=== PATIENT | female | born 1940 | race Caucasian/White ===

== ENCOUNTER 2021-11-10 18:28 | Inpatient (IN) | payer MEDICARE, BC ==
[~2021-11-10] VITALS: Ht 165.1 cm; Wt 72.2 kg
[2021-11-10] MEDS ORDERED: ONDANSETRON 4 MG/2 ML VIAL IV ONE (19:00)
[2021-11-10] MEDS ORDERED: IV NORMAL SALINE 1000 ML BAG IV ONE (19:00)
[2021-11-10] MEDS ORDERED: HYDROMORPHONE 1 MG/1 ML DISP.SYRIN IV ONE (19:00)
[2021-11-10] MEDS ORDERED: SWABABLE VALVE TRANSFER SET EA MC ONE (19:27)
[2021-11-10] MEDS ORDERED: IV NORMAL SALINE 250 ML IV ONE (19:27)
[2021-11-10] MEDS ORDERED: IOHEXOL 300MG/ML 100 ML INFUS..BTL ONE (19:27)
[2021-11-10] MEDS ORDERED: ONDANSETRON 4 MG/2 ML VIAL ONE (19:54)
[2021-11-10] MEDS ORDERED: HYDROMORPHONE 1 MG/1 ML DISP.SYRIN ONE (19:55)
[2021-11-10 20:18] LABS: HEMATOCRIT 39.7 % (31.2-41.9); MEAN CORPUSCULAR HEMOGLOBIN 27.2 uug (24.7-32.8); MEAN CORPUSCULAR VOLUME 86.9 fL (75.5-95.3); PLATELET COUNT (AUTO) 226 K/uL (179-408)
[2021-11-10 20:29] LABS: ALANINE AMINOTRANSFERASE 39 U/L (14-59); ALKALINE PHOSPHATASE 128 U/L (50-136); BILIRUBIN,DIRECT 0.1 mg/dL (0.0-0.2); BILIRUBIN,TOTAL 0.3 mg/dL (0.2-1.0); CARBON DIOXIDE 27 mmol/L (21-32); CREATININE 1.4 mg/dL (0.6-1.3); GLUCOSE 178 mg/dL (74-106); LIPASE 131 U/L (73-393); TOTAL PROTEIN, SERUM 6.8 g/dL (6.4-8.2); UREA NITROGEN, BLOOD 34 mg/dL (7-18)
[2021-11-10 20:31] LABS: CHLORIDE 101 mmol/L (98-107); POTASSIUM 4.2 mmol/L (3.5-5.1)
[2021-11-10 20:54] LABS: ASPARTATE AMINOTRANSFERASE 22 U/L (15-37)
[2021-11-10] MEDS ORDERED: IV NS 1000 ML 1,000 ML IV ONE (21:00)
[2021-11-10] MEDS ORDERED: METRONIDAZOLE 500 MG/NS 100 ML PIGGYBACK IV ONE (21:15)
[2021-11-10] MEDS ORDERED: levoFLOXacin 500 MG/D5W 100ML PIGGYBACK IV ONE (21:15)
[2021-11-10] MEDS ORDERED: METRONIDAZOLE 500 MG/NS 100ML 100 ML IV ONE (22:09)
[2021-11-10] MEDS ORDERED: ACETAMINOPHEN 650 MG SUPP.RECT RC PRN (23:00)
[2021-11-10] MEDS ORDERED: BISACODYL 10 MG SUPP.RECT RC PRN (23:00)
[2021-11-10] MEDS ORDERED: levoFLOXacin 500 MG/D5W 100 ML ONE (23:48)
[2021-11-11 00:15] VITALS: BP 148/84
[2021-11-11] MEDS ORDERED: PIPERACILLIN SODIUM/TAZOBACTAM 3.375 G in IV DEXTROSE 5% 50 ML IV SCH ×2 (01:00→09:00)
[2021-11-11] MEDS: IV D5/ 0.9% NACL 1,000 ML IV PRN (01:14)
[2021-11-11] MEDS: MORPHINE SULFATE 2 MG/1 ML DISP.SYRIN IV PRN (01:15)
[2021-11-11] MEDS ORDERED: PIPERACILLIN/TAZOBACTAM/D5W 50 ML IV ONE (01:17)
[2021-11-11 04:00] VITALS: BP 126/75
[2021-11-11 07:16] LABS: HEMATOCRIT 33.3 % (31.2-41.9); MEAN CORPUSCULAR HEMOGLOBIN 27.7 uug (24.7-32.8); MEAN CORPUSCULAR VOLUME 86.3 fL (75.5-95.3); PLATELET COUNT (AUTO) 168 K/uL (179-408)
[2021-11-11 07:46] LABS: BILIRUBIN,TOTAL 0.3 mg/dL (0.2-1.0); CREATININE 1.1 mg/dL (0.6-1.3); MAGNESIUM 1.6 mg/dL (1.8-2.4); PHOSPHOROUS 3.9 mg/dL (2.5-4.9); POTASSIUM 4.2 mmol/L (3.5-5.1); TOTAL PROTEIN, SERUM 5.6 g/dL (6.4-8.2)
[2021-11-11 08:40] LABS: THYROID STIMULATING HORMONE 1.913 mIU/mL (0.358-3.740)
[2021-11-11] MEDS: PANTOPRAZOLE SODIUM 40 MG VIAL IV SCH (09:27)
[2021-11-11] MEDS: PIPERACILLIN SODIUM/TAZOBACTAM 3.375 G in IV DEXTROSE 5% 100 ML IV SCH ×2 (09:27→16:44)
[2021-11-11] MEDS: MAGNESIUM SULFATE/D5W 100 ML IV SCH ×2 (10:31→11:35)
[2021-11-11] MEDS ORDERED: FLEET ENEMA 133 ML BOTTLE RC ONE (11:00)
[2021-11-11 11:12] VITALS: BP 116/63
[2021-11-11] MEDS ORDERED: DIATR MEGLU/DIATRIZOATE SODIUM 30 ML BOTTLE ONE (11:23)
[2021-11-11 13:16] LABS: *OCCULT BLOOD STOOL POSITIVE (NEGATIVE)
[2021-11-11] MEDS ORDERED: ATOR20TA PO (14:04)
[2021-11-11] MEDS ORDERED: OMEP40CA21 PO (14:04)
[2021-11-11] MEDS ORDERED: LEVO112T2 PO (14:04)
[2021-11-11] MEDS ORDERED: NITR50CA4 PO (14:04)
[2021-11-11] MEDS ORDERED: METF-886 PO (14:04)
[2021-11-11] MEDS ORDERED: GABA600T12 PO (14:04)
[2021-11-11] MEDS ORDERED: SERT100T PO (14:04)
[2021-11-11 15:16] VITALS: BP 128/69
[2021-11-11 20:03] VITALS: BP 153/85
[2021-11-12] MEDS: PIPERACILLIN SODIUM/TAZOBACTAM 3.375 G in IV DEXTROSE 5% 100 ML IV SCH ×3 (01:23→16:54)
[2021-11-12] MEDS: MORPHINE SULFATE 2 MG/1 ML DISP.SYRIN IV PRN (01:24)
[2021-11-12 04:06] VITALS: BP 148/66
[2021-11-12 07:03] LABS: HEMATOCRIT 32.5 % (31.2-41.9); MEAN CORPUSCULAR HEMOGLOBIN 27.6 uug (24.7-32.8); MEAN CORPUSCULAR VOLUME 86.6 fL (75.5-95.3); PLATELET COUNT (AUTO) 169 K/uL (179-408)
[2021-11-12 07:12] LABS: CREATININE 0.9 mg/dL (0.6-1.3); POTASSIUM 3.2 mmol/L (3.5-5.1)
[2021-11-12 07:23] LABS: MAGNESIUM 1.7 mg/dL (1.8-2.4); PHOSPHOROUS 3.3 mg/dL (2.5-4.9)
[2021-11-12] MEDS: PANTOPRAZOLE SODIUM 40 MG VIAL IV SCH (08:33)
[2021-11-12] MEDS ORDERED: POTASSIUM CHLORIDE 20 MEQ POWDER PACKET PO ONE (10:00)
[2021-11-12] MEDS: MAGNESIUM SULFATE/D5W 100 ML IV SCH ×2 (10:26→11:26)
[2021-11-12] MEDS ORDERED: LOPERAMIDE HCL 2 MG CAPSULE PO PRN (10:30)
[2021-11-12 11:09] VITALS: BP 156/83
[2021-11-12 15:00] VITALS: BP 146/73
[2021-11-12 15:21] VITALS: BP 146/73
[2021-11-12] MEDS ORDERED: ALPRAZOLAM 0.25 MG TABLET PO ONE (18:15)
[2021-11-12] MEDS ORDERED: METR500T PO (18:52)
[2021-11-12] MEDS ORDERED: ONDA4TAB11 PO (19:04)
[2021-11-12] MEDS ORDERED: CIPR500T5 PO (19:04)
[2021-11-12] MEDS ORDERED: LOPE2CAP40 PO (19:04)
[2021-11-12] MEDS ORDERED: DOCU-141 PO (19:04)
[2021-11-12] MEDS: METRONIDAZOLE 500 MG TABLET PO SCH ×2 (20:36→22:00)
[2021-11-12] MEDS: CIPROFLOXACIN HCL 250 MG TABLET PO SCH ×2 (20:36→21:00)
[2021-11-12 20:45] VITALS: BP 138/82
[2021-11-12] MEDS ORDERED: ZIPRASIDONE MESYLATE 20 MG VIAL IM STA (20:50)
[2021-11-12] MEDS: IV D5/ 0.9% NACL 1,000 ML IV PRN (22:47)
[2021-11-13 04:00] VITALS: BP 155/98
[2021-11-13] MEDS: METRONIDAZOLE 500 MG TABLET PO SCH ×4 (06:00→22:01)
[2021-11-13] MEDS: PANTOPRAZOLE SODIUM 40 MG TABLET.DR PO SCH ×2 (06:01→06:39)
[2021-11-13 06:41] LABS: HEMATOCRIT 33.5 % (31.2-41.9); MEAN CORPUSCULAR HEMOGLOBIN 27.9 uug (24.7-32.8); MEAN CORPUSCULAR VOLUME 85.8 fL (75.5-95.3); PLATELET COUNT (AUTO) 187 K/uL (179-408)
[2021-11-13 06:44] LABS: CREATININE 0.8 mg/dL (0.6-1.3); MAGNESIUM 1.7 mg/dL (1.8-2.4); PHOSPHOROUS 3.5 mg/dL (2.5-4.9); POTASSIUM 3.4 mmol/L (3.5-5.1)
[2021-11-13] MEDS: CIPROFLOXACIN HCL 250 MG TABLET PO SCH ×2 (09:28→20:47)
[2021-11-13] MEDS ORDERED: POTASSIUM CHLORIDE 20 MEQ TAB.PRT.SR PO ONE (09:30)
[2021-11-13] MEDS ORDERED: MAGNESIUM SULFATE/D5W 100 ML IV SCH (09:30)
[2021-11-13] MEDS ORDERED: MAGNESIUM OXIDE 400 MG TABLET PO ONE (09:30)
[2021-11-13] MEDS ORDERED: ONDANSETRON ODT 4 MG TAB.RAPDIS SL PRN (11:15)
[2021-11-13 12:02] VITALS: BP 189/96
[2021-11-13] MEDS ORDERED: Medication Not On Formulary EA (Gabapentin 600 MG) PO SCH (13:00)
[2021-11-13] MEDS ORDERED: HYDR-3972 PO (13:02)
[2021-11-13] MEDS: GABAPENTIN 300 MG CAPSULE PO SCH ×2 (13:11→17:00)
[2021-11-13] MEDS: ALPRAZOLAM 0.25 MG TABLET PO PRN (13:11)
[2021-11-13] MEDS: HYDROCODONE/APAP 5-325MG TABLET PO PRN ×2 (13:11→22:35)
[2021-11-13 16:21] VITALS: BP 136/79
[2021-11-13] MEDS: METFORMIN XR 500 MG TAB.SR.24H PO SCH (17:00)
[2021-11-13] MEDS: ATORVASTATIN 20 MG TABLET PO SCH (20:47)
[2021-11-14 04:22] VITALS: BP 147/96
[2021-11-14] MEDS: LEVOTHYROXINE SODIUM 112 MCG TABLET PO SCH (06:02)
[2021-11-14] MEDS: METRONIDAZOLE 500 MG TABLET PO SCH ×3 (06:02→21:13)
[2021-11-14] MEDS: PANTOPRAZOLE SODIUM 40 MG TABLET.DR PO SCH (06:02)
[2021-11-14 07:08] LABS: MAGNESIUM 1.6 mg/dL (1.8-2.4); POTASSIUM 4.3 mmol/L (3.5-5.1)
[2021-11-14 08:32] VITALS: BP 160/94
[2021-11-14] MEDS: SERTRALINE HCL 100 MG TABLET PO SCH (08:35)
[2021-11-14] MEDS: CIPROFLOXACIN HCL 250 MG TABLET PO SCH ×2 (08:36→20:07)
[2021-11-14] MEDS: GABAPENTIN 300 MG CAPSULE PO SCH ×3 (08:36→17:29)
[2021-11-14] MEDS: METFORMIN XR 500 MG TAB.SR.24H PO SCH ×2 (08:36→17:29)
[2021-11-14] MEDS: MAGNESIUM SULFATE/D5W 100 ML IV SCH ×2 (10:46→12:02)
[2021-11-14 15:32] VITALS: BP 157/93
[2021-11-14] MEDS: HYDROCODONE/APAP 5-325MG TABLET PO PRN ×2 (17:35→21:54)
[2021-11-14 19:26] VITALS: BP 136/64
[2021-11-14] MEDS: ALPRAZOLAM 0.25 MG TABLET PO PRN (19:47)
[2021-11-14 20:00] VITALS: BP 136/64
[2021-11-14] MEDS: ATORVASTATIN 20 MG TABLET PO SCH (20:07)
[2021-11-14] MEDS ORDERED: ACETAMINOPHEN 325 MG TABLET PO PRN (22:00)
[2021-11-15] MEDS: HYDROCODONE/APAP 5-325MG TABLET PO PRN ×3 (00:32→17:26)
[2021-11-15 02:25] LABS: *BILIRUBIN,URIN NEGATIVE (NEGATIVE); *BLOOD, URINE NEGATIVE (NEGATIVE); *CLARITY,URINE CLEAR (CLEAR); *COLOR,URINE YELLOW (YELLOW); *KETONES,URINE NEGATIVE (NEGATIVE); *UROBILINOGEN,URINE 0.2 E.U./dl (NORMAL); LEUKOCYTE ESTERASE ,URINE NEGATIVE (NEGATIVE); NITRITE, URINE NEGATIVE (NEGATIVE); UGLUCOSE NEGATIVE (NEGATIVE)
[2021-11-15 04:00] VITALS: BP 130/88
[2021-11-15] MEDS: METRONIDAZOLE 500 MG TABLET PO SCH ×2 (05:49→13:24)
[2021-11-15] MEDS: PANTOPRAZOLE SODIUM 40 MG TABLET.DR PO SCH (06:06)
[2021-11-15] MEDS: LEVOTHYROXINE SODIUM 112 MCG TABLET PO SCH (06:06)
[2021-11-15 07:33] LABS: CREATININE 1.1 mg/dL (0.6-1.3); MAGNESIUM 1.7 mg/dL (1.8-2.4); POTASSIUM 4.3 mmol/L (3.5-5.1)
[2021-11-15 08:00] VITALS: BP 138/96
[2021-11-15] MEDS: METFORMIN XR 500 MG TAB.SR.24H PO SCH ×2 (08:35→17:29)
[2021-11-15] MEDS: GABAPENTIN 300 MG CAPSULE PO SCH ×3 (08:36→17:20)
[2021-11-15] MEDS: CIPROFLOXACIN HCL 250 MG TABLET PO SCH (08:36)
[2021-11-15] MEDS: SERTRALINE HCL 100 MG TABLET PO SCH (08:37)
[2021-11-15] MEDS: GLUCERNA SHAKE VANILLA 237 ML CAN PO SCH ×2 (10:41→17:21)
[2021-11-15] MEDS ORDERED: MAGNESIUM OXIDE 400 MG TABLET PO ONE (11:00)
[2021-11-15 12:00] VITALS: BP 127/82
[2021-11-15 16:00] VITALS: BP 133/71
== END 2021-11-15 18:45 | DRG 388 ==
LOC: ER 18:35 → MEDSURG3 23:59 → TELE3 11-11 00:15 → MEDSURG3 11-11 08:50
PROVIDERS: ADMIT Nurse Practitioner Family; ATTEND Nurse Practitioner Family
DX: K56.7 Ileus, unspecified (principal); N17.0 Acute kidney failure with tubular necrosis; S32.592A Other specified fracture of left pubis, initial encounter for closed fracture; I31.3 Pericardial effusion (noninflammatory); K56.41 Fecal impaction; K52.9 Noninfective gastroenteritis and colitis, unspecified; E86.0 Dehydration; E11.9 Type 2 diabetes mellitus without complications; E27.9 Disorder of adrenal gland, unspecified; K20.90 Esophagitis, unspecified without bleeding; Z96.641 Presence of right artificial hip joint; Z96.611 Presence of right artificial shoulder joint; Z90.710 Acquired absence of both cervix and uterus; Z90.49 Acquired absence of other specified parts of digestive tract; Z87.891 Personal history of nicotine dependence; N28.1 Cyst of kidney, acquired; K57.30 Diverticulosis of large intestine without perforation or abscess without bleeding; I10 Essential (primary) hypertension; E78.5 Hyperlipidemia, unspecified; E07.9 Disorder of thyroid, unspecified; R90.82 White matter disease, unspecified; W19.XXXA Unspecified fall, initial encounter; Y93.9 Activity, unspecified; Y92.9 Unspecified place or not applicable
CPT/HCPCS: 36415; 70450; 71045; 72125; 73502; 73551; 73700; 74250; 82378; 83550; 83605; 83690; 83735; 84100; 84443; 84484; 85025; 87086; 93005; 97161; A4663; C9113; G0378; J1170; J1956; J2270; J2405; J2543; J3475; J3486; J3490; J7040; Q0162; Q9963; Q9967

== ENCOUNTER 2022-12-29 19:32 | Inpatient (IN) | payer MEDICARE, BC ==
[~2022-12-29] VITALS: Ht 165.1 cm; Wt 67.1 kg
[~2022-12-29 19:32] MED LIST: ATOR20TA PO; CIPR500T5 PO; DOCU-141 PO; GABA600T12 PO; HYDR-3972 PO; LEVO112T2 PO; LOPE2CAP40 PO; METF-886 PO; METR500T PO; OMEP40CA21 PO; ONDA4TAB11 PO; SERT100T PO
[2022-12-29] MEDS ORDERED: ONDANSETRON 4 MG/2 ML VIAL IV ONE ×2 (19:45→20:45)
[2022-12-29] MEDS ORDERED: IV NORMAL SALINE 1000 ML BAG IV ONE (19:45)
[2022-12-29] MEDS ORDERED: ONDANSETRON 4 MG/2 ML VIAL ONE ×2 (19:55→20:59)
--- NOTE | 2022-12-29 19:55 | NUR ---
Xray at bedside.
[2022-12-29] MEDS ORDERED: NOREPINEPHRINE BITARTRATE 8 MG in IV NORMAL SALINE 242 ML IV PRN (20:00)
--- NOTE | 2022-12-29 20:00 | NUR ---
Patient had 2x watery brown diarhea. Stool sample sent to lab.
[2022-12-29 20:03] LABS: HEMATOCRIT 41.2 % (31.2-41.9); MEAN CORPUSCULAR HEMOGLOBIN 26.1 uug (24.7-32.8); MEAN CORPUSCULAR VOLUME 86.3 fL (75.5-95.3); PLATELET COUNT (AUTO) 202 K/uL (179-408)
[2022-12-29 20:17] LABS: CARBON DIOXIDE 23 mmol/L (21-32); CHLORIDE 102 mmol/L (98-107); CREATININE 1.4 mg/dL (0.6-1.3); GLUCOSE 167 mg/dL (74-106); POTASSIUM 4.7 mmol/L (3.5-5.1); UREA NITROGEN, BLOOD 37 mg/dL (7-18)
[2022-12-29] MEDS ORDERED: NOREPINEPHRINE BITARTRATE 4 MG/4 ML VIAL IV ONE (20:24)
[2022-12-29 20:25] LABS: ALANINE AMINOTRANSFERASE 31 U/L (14-59); ALKALINE PHOSPHATASE 131 U/L (50-136); ASPARTATE AMINOTRANSFERASE 46 U/L (15-37); BILIRUBIN,DIRECT 0.1 mg/dL (0.0-0.2); BILIRUBIN,TOTAL 0.3 mg/dL (0.2-1.0); TOTAL PROTEIN, SERUM 6.2 g/dL (6.4-8.2)
[2022-12-29] MEDS ORDERED: IV NORMAL SALINE 500 ML IV ONE ×2 (20:30→23:15)
[2022-12-29] MEDS ORDERED: MORPHINE SULFATE 2 MG/1 ML DISP.SYRIN IV ONE (20:30)
[2022-12-29 20:36] LABS: LIPASE 582 U/L (73-393)
[2022-12-29] MEDS ORDERED: MORPHINE SULFATE 2 MG/1 ML DISP.SYRIN ONE (20:59)
--- NOTE | 2022-12-29 21:00 | NUR ---
Levophed 8mg in 0.9% 242ml reconsituted and placed at bedside per Dr. Rodríguez.
--- NOTE | 2022-12-29 21:30 | NUR ---
Levophed 8mg in 0.9% NS 247ml infusing at 0.1mcg for blood pressure 67/47 to 20G left forearm.
--- NOTE | 2022-12-29 21:35 | NUR ---
Chidi hanson in EDM - 12/30/22 at 0446 by IRVING Levophed 8mg in IV 0.9% NS infusing 0.1mcg for blood pressure of 79/57
[2022-12-29 22:08] LABS: *BILIRUBIN,URIN NEGATIVE (NEGATIVE); *BLOOD, URINE 2+ (NEGATIVE); *CLARITY,URINE SLIGHTLY CLOUDY (CLEAR); *COLOR,URINE YELLOW (YELLOW); *KETONES,URINE TRACE (NEGATIVE); *UROBILINOGEN,URINE 0.2 E.U./dl (NORMAL); LEUKOCYTE ESTERASE ,URINE 1+ (NEGATIVE); NITRITE, URINE NEGATIVE (NEGATIVE); UGLUCOSE NEGATIVE (NEGATIVE)
--- NOTE | 2022-12-29 22:10 | NUR ---
Notified Dr. Rodríguez of patient's BP: 132/80-> Per Dr. Rodríguez's order. given verbal order to decrease Levophed drip 8mg- 0.02mcg
--- NOTE | 2022-12-29 22:12 | NUR ---
Per Dr. Rodríguez, given verbal order to decrease Levophed 8mg drip to 0.01mcg.
--- NOTE | 2022-12-29 22:13 | NUR ---
Called [facility] for panel call. Eleuterio legal nurse consultant.
[2022-12-29] MEDS ORDERED: MEROPENEM 1,000 MG in IV NORMAL SALINE 100 ML IV ONE (22:30)
[2022-12-29 22:35] LABS: BACTERIA,URINE FEW /HPF (NONE SEEN); SQUAMOUS EPITHELIAL CELL,UR FEW /HPF (NONE SEEN)
[2022-12-29 22:36] LABS: WBC,URINE 20-50 /HPF (0-3)
[2022-12-29] MEDS ORDERED: ACETAMINOPHEN 325 MG TABLET PO PRN (23:00)
[2022-12-29] MEDS ORDERED: DEXTROSE 50% 50 ML DISP.SYRIN IV PRN (23:00)
[2022-12-29] MEDS ORDERED: MEROPENEM 1GM/NS 100ML IVPB **ER PYXIS ONLY IV ONE (23:05)
[2022-12-29 23:44] LABS: CARBON DIOXIDE 23 mmol/L (21-32); CHLORIDE 104 mmol/L (98-107); CREATININE 1.5 mg/dL (0.6-1.3); GLUCOSE 215 mg/dL (74-106); POTASSIUM 4.5 mmol/L (3.5-5.1); UREA NITROGEN, BLOOD 40 mg/dL (7-18)
[2022-12-30] VITALS (11 sets, daily range): BP systolic 94–148; BP diastolic 51–100
[2022-12-30] MEDS ORDERED: ONDANSETRON 4 MG/2 ML VIAL ONE (00:28)
[2022-12-30] MEDS: ONDANSETRON 4 MG/2 ML VIAL IV PRN ×2 (00:34→20:36)
--- NOTE | 2022-12-30 00:45 | NUR ---
Called third floor to request tele bed. Per Plant Utility Person Nurse, no avaliable telemetry beds. Patient to remain in ER.
--- NOTE | 2022-12-30 00:57 | NUR ---
Spoke to Richard CRIMPING MACHINE OPERATOR, Patient's vital signs have been stable. Per Richard CRIMPING MACHINE OPERATOR, to discontinue Levophed 8mg drip and continue to monitor blood pressure.
--- NOTE | 2022-12-30 00:58 | NUR ---
Levophed 8mg in 0.9%NS 242ml discontinued per Allen Richard WATER JET LOOM FIXER order.
--- NOTE | 2022-12-30 02:00 | NUR ---
Patient had 1x brown watery diarrhea in brief.
--- NOTE | 2022-12-30 02:30 | NUR ---
Patient sleeping comfortably in bed, no signs of distress noted.
[2022-12-30] MEDS ORDERED: NOREPINEPHRINE BITARTRATE 8 MG in IV NORMAL SALINE 242 ML IV PRN ×2 (04:15→04:30)
[2022-12-30] MEDS ORDERED: MEROPENEM 0.5 G in IV NORMAL SALINE 50 ML IV SCH (06:00)
[2022-12-30 06:01] LABS: CARBON DIOXIDE 23 mmol/L (21-32); CHLORIDE 104 mmol/L (98-107); CHOLESTEROL 107 mg/dL (<200); CREATININE 1.6 mg/dL (0.6-1.3); GLUCOSE 252 mg/dL (74-106); HDL CHOLESTEROL 45 mg/dL (40-60); MAGNESIUM 1.4 mg/dL (1.8-2.4); PHOSPHOROUS 4.6 mg/dL (2.5-4.9); POTASSIUM 4.5 mmol/L (3.5-5.1); TRIGLYCERIDES 65 MG/DL (30-150); UREA NITROGEN, BLOOD 43 mg/dL (7-18)
[2022-12-30 06:14] LABS: HEMATOCRIT 33.5 % (31.2-41.9); MEAN CORPUSCULAR HEMOGLOBIN 26.6 uug (24.7-32.8); MEAN CORPUSCULAR VOLUME 84.6 fL (75.5-95.3); PLATELET COUNT (AUTO) 179 K/uL (179-408)
--- NOTE | 2022-12-30 06:17 | NUR ---
Patient has been admitted to TELE floor room 301B.
--- NOTE | 2022-12-30 06:21 | NUR ---
Called [facility] for panel call. Waiting for call back.
--- NOTE | 2022-12-30 06:38 | NUR ---
Per Eleuterio SELVAGE MACHINE OPERATOR, patient is to admit to CCU.
[2022-12-30] MEDS ORDERED: IV NS 1000 ML 1,000 ML IV ONE (06:45)
[2022-12-30] MEDS ORDERED: ENOXAPARIN SODIUM 40 MG/0.4 ML DISP.SYRIN SQ SCH (07:00)
--- NOTE | 2022-12-30 07:00 | NUR ---
Report from Yarely LORA Pt. asleep at this time. HR 109
--- NOTE | 2022-12-30 07:05 | NUR ---
Spoke with Eleuterio DE LEON, to notify of pink tinged watery diarrhea found in diaper. Per Eleuterio DE LEON to hold off on Loveanox due at 07:00.
--- NOTE | 2022-12-30 07:15 | NUR ---
Report given to [facility] day shift nurse, Amy LORA.
--- NOTE | 2022-12-30 07:23 | NUR ---
son at bedside, called ICU for report and will call back
--- NOTE | 2022-12-30 07:28 | NUR ---
Dr. Rodríguez currently speaking with son at this time
[2022-12-30] MEDS: BLOOD SUGAR DIAGNOSTIC 1 EACH STRIP VI SCH ×4 (07:30→21:14)
[2022-12-30] MEDS ORDERED: GABAPENTIN 300 MG CAPSULE ONE (08:38)
[2022-12-30] MEDS ORDERED: DOCUSATE SODIUM 100 MG CAPSULE PO ONE (08:38)
[2022-12-30] MEDS ORDERED: SERTRALINE HCL 50 MG TABLET ONE (08:39)
[2022-12-30] MEDS ORDERED: METRONIDAZOLE 500 MG/NS 100ML 100 ML IV ONE (08:39)
[2022-12-30] MEDS ORDERED: LEVOTHYROXINE SODIUM 112 MCG TABLET ONE (08:39)
[2022-12-30] MEDS: METRONIDAZOLE 500 MG/NS 100ML 500 MG in PREMIXED 1 EACH IV SCH ×2 (08:51→16:34)
--- NOTE | 2022-12-30 08:59 | NUR ---
pt ate breakfast. full liquid diet. VSS HR 97 at this time, 105/50, 96%. PO meds refused at this time. pt asleep.
--- NOTE | 2022-12-30 10:27 | NUR ---
endorsed to [facility] going to RM 1
[2022-12-30] MEDS: DOCUSATE SODIUM 100 MG CAPSULE PO SCH ×2 (11:28→16:35)
[2022-12-30] MEDS: LEVOTHYROXINE SODIUM 112 MCG TABLET PO SCH (11:28)
[2022-12-30] MEDS: MEROPENEM 0.5 G in IV NORMAL SALINE 50 ML IV SCH ×2 (11:29→22:12)
[2022-12-30] MEDS: GABAPENTIN 400 MG CAPSULE PO SCH ×2 (11:32→12:57)
[2022-12-30] MEDS: SERTRALINE HCL 100 MG TABLET PO SCH (11:34)
--- NOTE | 2022-12-30 11:51 | NUR ---
pt complaining of nausea, emesis bag given and zofran administered. Accidently forgot to scan medication, pharmacy made aware advised to write this note. next dose if needed can be given at 1751.
[2022-12-30] MEDS ORDERED: IV NORMAL SALINE 1,000 ML IV ONE (12:15)
[2022-12-30] MEDS: ENOXAPARIN SODIUM 30 MG/0.3 ML DISP.SYRIN SUBCUT SCH (12:30)
[2022-12-30] MEDS: MAGNESIUM SULFATE/D5W 100 ML IV SCH ×2 (12:53→12:54)
--- NOTE | 2022-12-30 12:57 | NUR ---
Previous dose of Neurontin given @ 1112 was AM dose that was ordered for when the patient was in ED. Next dose is at 1300 and ordered to be held by Todd from pharmacy as the doses would be too close.
[2022-12-30 14:26] LABS: *OCCULT BLOOD STOOL POSITIVE (NEGATIVE)
[2022-12-30] MEDS ORDERED: gemtesa PO (16:27)
[2022-12-30] MEDS: GABAPENTIN 300 MG CAPSULE PO SCH (16:34)
[2022-12-30] MEDS: INSULIN REGULAR, HUMAN 300 UNIT/3 ML VIAL SQ PRN ×2 (18:23→21:13)
[2022-12-30] MEDS: ATORVASTATIN 20 MG TABLET PO SCH (21:04)
[2022-12-31] VITALS (14 sets, daily range): BP systolic 127–159; BP diastolic 43–102
[2022-12-31] MEDS: METRONIDAZOLE 500 MG/NS 100ML 500 MG in PREMIXED 1 EACH IV SCH ×3 (01:01→17:06)
[2022-12-31] MEDS ORDERED: DILTIAZEM HCL 25 MG IV IV ONE (03:15)
[2022-12-31 05:45] LABS: HEMATOCRIT 26.7 % (31.2-41.9); MEAN CORPUSCULAR HEMOGLOBIN 26.5 uug (24.7-32.8); MEAN CORPUSCULAR VOLUME 84.1 fL (75.5-95.3); PLATELET COUNT (AUTO) 142 K/uL (179-408)
[2022-12-31 06:01] LABS: MAGNESIUM 1.6 mg/dL (1.8-2.4); PHOSPHOROUS 3.2 mg/dL (2.5-4.9); POTASSIUM 3.7 mmol/L (3.5-5.1)
[2022-12-31 06:12] LABS: BAND % (MANUAL) 8 % (0-10); BASOPHILS % (MANUAL) 0 % (0-2); EOSINOPHILS % (MANUAL) 0 % (0-8); LYMPHOCYTES % (MANUAL) 31 % (20-40); MONOCYTES % (MANUAL) 18 % (2-10); NEUTROPHILS % (MANUAL) 43 % (42-75)
[2022-12-31] MEDS: BLOOD SUGAR DIAGNOSTIC 1 EACH STRIP VI SCH ×4 (08:11→21:00)
[2022-12-31] MEDS: ENOXAPARIN SODIUM 30 MG/0.3 ML DISP.SYRIN SUBCUT SCH ×2 (09:00→09:21)
[2022-12-31] MEDS: SERTRALINE HCL 100 MG TABLET PO SCH (09:13)
[2022-12-31] MEDS: GABAPENTIN 300 MG CAPSULE PO SCH ×3 (09:13→17:08)
[2022-12-31] MEDS: LEVOTHYROXINE SODIUM 112 MCG TABLET PO SCH (09:55)
[2022-12-31] MEDS: IV NS 1000 ML 1,000 ML IV PRN (10:18)
[2022-12-31] MEDS: MEROPENEM 1 G in IV NORMAL SALINE 100 ML IV SCH ×2 (11:35→22:31)
[2022-12-31] MEDS: MAGNESIUM SULFATE/D5W 100 ML IV SCH ×2 (13:27→14:41)
[2022-12-31] MEDS: ONDANSETRON 4 MG/2 ML VIAL IV PRN (14:41)
[2022-12-31] MEDS: ATORVASTATIN 20 MG TABLET PO SCH (21:37)
[2022-12-31] MEDS ORDERED: KETOROLAC TROMETHAMINE 15 MG INJ IVP ONE (22:00)
[2022-12-31] MEDS ORDERED: KETOROLAC TROMETHAMINE 15 MG INJ ONE (22:07)
[2023-01-01] VITALS (7 sets, daily range): BP systolic 133–157; BP diastolic 71–97
[2023-01-01] MEDS: METRONIDAZOLE 500 MG/NS 100ML 500 MG in PREMIXED 1 EACH IV SCH ×2 (00:21→08:38)
--- NOTE | 2023-01-01 05:00 | NUR ---
Moved to TELE room # 329. Report to Ava Concepcion RN.
[2023-01-01 05:03] LABS: HEMATOCRIT 28.4 % (31.2-41.9); MEAN CORPUSCULAR HEMOGLOBIN 26.9 uug (24.7-32.8); MEAN CORPUSCULAR VOLUME 83.5 fL (75.5-95.3); PLATELET COUNT (AUTO) 153 K/uL (179-408)
[2023-01-01 05:22] LABS: CARBON DIOXIDE 24 mmol/L (21-32); CHLORIDE 111 mmol/L (98-107); CREATININE 0.8 mg/dL (0.6-1.3); GLUCOSE 105 mg/dL (74-106); MAGNESIUM 1.5 mg/dL (1.8-2.4); PHOSPHOROUS 3.2 mg/dL (2.5-4.9); POTASSIUM 3.9 mmol/L (3.5-5.1); UREA NITROGEN, BLOOD 14 mg/dL (7-18)
[2023-01-01 05:41] LABS: BAND % (MANUAL) 2 % (0-10); EOSINOPHILS % (MANUAL) 4 % (0-8); LYMPHOCYTES % (MANUAL) 40 % (20-40); MONOCYTES % (MANUAL) 18 % (2-10)
[2023-01-01 05:42] LABS: NEUTROPHILS % (MANUAL) 36 % (42-75)
[2023-01-01] MEDS: IV NS 1000 ML 1,000 ML IV PRN (06:22)
[2023-01-01] MEDS: BLOOD SUGAR DIAGNOSTIC 1 EACH STRIP VI SCH ×4 (06:53→20:20)
--- NOTE | 2023-01-01 07:16 | NUR ---
REPORT GIVEN TO [facility]
[2023-01-01] MEDS: LEVOTHYROXINE SODIUM 112 MCG TABLET PO SCH (08:38)
[2023-01-01] MEDS: SERTRALINE HCL 100 MG TABLET PO SCH (08:38)
[2023-01-01] MEDS: GABAPENTIN 300 MG CAPSULE PO SCH ×3 (08:39→16:59)
--- NOTE | 2023-01-01 09:15 | NUR ---
RCVD PT IN BED SLEEPING. 02 NASAL CANNULA SATURATING 95%. DIET ADVANCE TO [facility] FROM FULL LIQUID DIET AND SHE IS TOLERATING IT. ROUTINE MEDS GIVEN AND PT TOLERATED IT WELL.
[2023-01-01] MEDS: MAGNESIUM SULFATE/D5W 100 ML IV SCH ×2 (09:42→10:50)
[2023-01-01] MEDS: INSULIN REGULAR, HUMAN 300 UNIT/3 ML VIAL SQ PRN ×2 (12:05→16:54)
[2023-01-01] MEDS: MEROPENEM 1 G in IV NORMAL SALINE 100 ML IV SCH ×2 (12:06→22:08)
[2023-01-01] MEDS ORDERED: buPROPion 100 MG TABLET PO SCH (13:30)
[2023-01-01] MEDS: buPROPion XL 150 MG TAB.SR.24H PO SCH (14:43)
[2023-01-01] MEDS: VANCOMYCIN FOR PO/GT/NG USE PO SCH ×2 (17:21→20:15)
--- NOTE | 2023-01-01 18:12 | NUR ---
PT IN ATB THERAPY. NO S/S OF ADVERSE REACTION NOTED. ORTHOSTATIC EVALUATION DONE. (SEE VITALS LONG FORM). SUPRA CATHETER DRAINING 950 CC WITH CLEAR URINE. WITH 1 SOFT-WATERY BM. CAREGIVER ON THE BED SIDE. PT. STABLE AND ALL NEEDS ATTENDED.
--- NOTE | 2023-01-01 19:30 | NUR ---
Received patient lying in bed. Private caregiver at bedside. AAOx3-4. In no acute distress. No complain of SOB. NSR on tele with Hr of 72/min. Safety measure initiated and call light within reached.
--- NOTE | 2023-01-01 19:35 | NUR ---
Noted IV on left FA infiltrated. Placed new IV on right FA #[id number].
[2023-01-01] MEDS: ATORVASTATIN 20 MG TABLET PO SCH (20:15)
--- NOTE | 2023-01-01 20:49 | NUR ---
patient requesting for sleeping medication. Dr. Patel into visit and informed of patient request and ordered Ambien 5mg PO QHS PRN for insomnia. Order read back, verified and will carry out.
[2023-01-01] MEDS: ZOLPIDEM 5 MG TABLET PO PRN (21:13)
[2023-01-02 00:05] VITALS: BP 167/87
[2023-01-02 04:00] VITALS: BP 134/75
[2023-01-02] MEDS: IV NS 1000 ML 1,000 ML IV PRN ×2 (05:27→23:10)
--- NOTE | 2023-01-02 05:47 | NUR ---
Slept well through out the night after Ambien 5mg PO given. No adverse effect noted from IV antibiotic. IVF continue to infuse. NSR on tele with HR of 76/min. Needs attended to and met. Safety measure maintained and call light within reached.
[2023-01-02] MEDS: BLOOD SUGAR DIAGNOSTIC 1 EACH STRIP VI SCH ×4 (06:35→21:00)
[2023-01-02 07:56] LABS: CREATININE 0.8 mg/dL (0.6-1.3); MAGNESIUM 1.4 mg/dL (1.8-2.4); POTASSIUM 4.1 mmol/L (3.5-5.1)
--- NOTE | 2023-01-02 08:00 | NUR ---
resting in bed, on 1L O2, no distress noted, tele SR, denies of pain, instructed of plan of care- verbalized understanding, safety measures maintained, call light within reach.
[2023-01-02] MEDS: SERTRALINE HCL 100 MG TABLET PO SCH (08:49)
[2023-01-02] MEDS: LEVOTHYROXINE SODIUM 112 MCG TABLET PO SCH (08:49)
[2023-01-02] MEDS: buPROPion XL 150 MG TAB.SR.24H PO SCH (08:49)
[2023-01-02] MEDS: ONDANSETRON 4 MG/2 ML VIAL IV PRN (08:49)
--- NOTE | 2023-01-02 08:49 | NUR ---
medicated for c/o nausea
[2023-01-02] MEDS: GABAPENTIN 300 MG CAPSULE PO SCH ×3 (08:50→17:10)
[2023-01-02] MEDS: ENOXAPARIN SODIUM 30 MG/0.3 ML DISP.SYRIN SUBCUT SCH (08:52)
[2023-01-02] MEDS: VANCOMYCIN FOR PO/GT/NG USE PO SCH ×4 (09:00→22:45)
--- NOTE | 2023-01-02 09:30 | NUR ---
nausea resolved. will continue to monitor
[2023-01-02] MEDS: MAGNESIUM SULFATE/D5W 100 ML IV SCH ×4 (10:11→14:08)
[2023-01-02] MEDS: MEROPENEM 1 G in IV NORMAL SALINE 100 ML IV SCH ×2 (11:21→22:45)
[2023-01-02 11:42] VITALS: BP 168/96
[2023-01-02] MEDS: INSULIN REGULAR, HUMAN 300 UNIT/3 ML VIAL SQ PRN ×2 (11:48→23:04)
[2023-01-02 13:45] VITALS: BP 146/83
[2023-01-02] MEDS ORDERED: hydrALAZINE HCL 20 MG/1 ML VIAL IV PRN (13:45)
--- NOTE | 2023-01-02 13:45 | NUR ---
family and care nurse rn at bedside-BP rechecked-146/83 HR 74
[2023-01-02 16:00] VITALS: BP 154/85
--- NOTE | 2023-01-02 16:36 | NUR ---
records from [facility] requested
--- NOTE | 2023-01-02 18:00 | NUR ---
resting in bed, pleasant and cooperative, family here visiting, repositioned q 2h for comfort. no distress noted
[2023-01-02 20:00] VITALS: BP 157/81
[2023-01-02] MEDS: ATORVASTATIN 20 MG TABLET PO SCH (22:45)
[2023-01-03] VITALS: BP 150/80
[2023-01-03] MEDS: ZOLPIDEM 5 MG TABLET PO PRN (01:22)
--- NOTE | 2023-01-03 03:11 | NUR ---
PT GIVEN MEDICATION ORDERED PT DENIES PAIN BUT REQUESTED SOMETHING FOR SLEEP CHECKED PATIENT IN AN HOUR PT ASLEEP NO SIGN OF RESPIRATORY DISTRESS NOTED. WILL CONTINUE TO MONITOR FOR SAFETY.
[2023-01-03 04:00] VITALS: BP 167/85
[2023-01-03] MEDS: BLOOD SUGAR DIAGNOSTIC 1 EACH STRIP VI SCH ×3 (06:54→16:46)
[2023-01-03] MEDS: INSULIN REGULAR, HUMAN 300 UNIT/3 ML VIAL SQ PRN (06:55)
[2023-01-03 07:16] LABS: CARBON DIOXIDE 31 mmol/L (21-32); CHLORIDE 108 mmol/L (98-107); CREATININE 0.7 mg/dL (0.6-1.3); GLUCOSE 113 mg/dL (74-106); MAGNESIUM 1.6 mg/dL (1.8-2.4); POTASSIUM 4.2 mmol/L (3.5-5.1); UREA NITROGEN, BLOOD 11 mg/dL (7-18)
[2023-01-03] MEDS: buPROPion XL 150 MG TAB.SR.24H PO SCH (08:52)
[2023-01-03] MEDS: LEVOTHYROXINE SODIUM 112 MCG TABLET PO SCH (08:52)
[2023-01-03] MEDS: GABAPENTIN 300 MG CAPSULE PO SCH ×3 (08:53→17:21)
[2023-01-03] MEDS: VANCOMYCIN FOR PO/GT/NG USE PO SCH ×3 (08:53→17:21)
[2023-01-03] MEDS: ENOXAPARIN SODIUM 30 MG/0.3 ML DISP.SYRIN SUBCUT SCH (08:56)
[2023-01-03] MEDS: SERTRALINE HCL 100 MG TABLET PO SCH (08:59)
[2023-01-03] MEDS ORDERED: MAGNESIUM OXIDE 400 MG TABLET PO ONE (10:00)
[2023-01-03] MEDS: MEROPENEM 1 G in IV NORMAL SALINE 100 ML IV SCH (11:16)
--- NOTE | 2023-01-03 11:38 | NUR ---
Patient blood pressure is 180/98, pulse 69. PRN Hydralazine 10 mg/0.5 ml IV push given at 11:29AM, will be monitored for effectiveness.
[2023-01-03 11:40] VITALS: BP 170/100
--- NOTE | 2023-01-03 11:48 | NUR ---
Patient blood glucose is 110, no insulin given per sliding scale.
--- NOTE | 2023-01-03 12:42 | NUR ---
Patient blood pressure is 168/70, pulse 72 after Hydralazine PRN.
[2023-01-03] MEDS ORDERED: LISINOPRIL 10 MG TABLET PO SCH (14:00)
--- NOTE | 2023-01-03 14:36 | NUR ---
Physical Education Department Chair prescribed Lisinopril 10 mg daily PO, first dose was given at 14:27.
[2023-01-03] MEDS: ONDANSETRON 4 MG/2 ML VIAL IV PRN (14:45)
--- NOTE | 2023-01-03 14:56 | NUR ---
Patient is given Zofran 4 mg/2ml at 14:45 for nauseas, will be monitored for effectiveness.
[2023-01-03 15:18] VITALS: BP 150/90
[2023-01-03] MEDS ORDERED: NITR100C11 PO (17:57)
[2023-01-03] MEDS ORDERED: LISI10TA29 PO (17:57)
[2023-01-03] MEDS ORDERED: BUPR-53 PO (17:57)
[2023-01-03 20:00] VITALS: BP 144/77
--- NOTE | 2023-01-03 20:08 | NUR ---
PATIENT ALERT AND ORIENTEDX4. DISCHARGE TEACHINGS MADE TO PT AND CAREGIVER. PAPERWORK SIGNED BY PATIENT. DISCHARGED TO HOME VIA [facility]. BP 136/76. NO DIZZINESS OR ANY DISCOMFORT NOTED. ALL BELONGINGS LIST COMPLETE. HOME MEDICATION GIVEN TO CAREGIVER. ID BAND AND IV REMOVED. SAFETY PRECAUTIONS MAINTAINED.
[2023-01-04] MEDS ORDERED: NITROFURANTOIN/NITROFURAN MAC 100 MG CAPSULE PO SCH ×2 (09:00)
== END 2023-01-03 21:32 | disposition home health service (06) | DRG 871 ==
LOC: ER 19:34 → TRANSITION 12-30 00:01 → CCU 12-30 10:44 → TELE3 01-01 05:35 → MEDSURG3 01-02 10:25
PROVIDERS: ADMIT Nurse Practitioner Acute Care; ATTEND Nurse Practitioner Acute Care
DX: A41.50 Gram-negative sepsis, unspecified (principal); N17.0 Acute kidney failure with tubular necrosis; N39.0 Urinary tract infection, site not specified; D68.59 Other primary thrombophilia; E44.0 Moderate protein-calorie malnutrition; E87.20 Acidosis, unspecified; Z93.6 Other artificial openings of urinary tract status; Z74.09 Other reduced mobility; E78.5 Hyperlipidemia, unspecified; E03.9 Hypothyroidism, unspecified; K21.9 Gastro-esophageal reflux disease without esophagitis; G89.29 Other chronic pain; R19.7 Diarrhea, unspecified; F32.9 Major depressive disorder, single episode, unspecified; E11.42 Type 2 diabetes mellitus with diabetic polyneuropathy; Z79.84 Long term (current) use of oral hypoglycemic drugs; I10 Essential (primary) hypertension; I48.91 Unspecified atrial fibrillation; E88.09 Other disorders of plasma-protein metabolism, not elsewhere classified; N28.1 Cyst of kidney, acquired; Z96.641 Presence of right artificial hip joint; Z90.710 Acquired absence of both cervix and uterus; Z87.440 Personal history of urinary (tract) infections; Z79.899 Other long term (current) drug therapy; D35.02 Benign neoplasm of left adrenal gland; R11.10 Vomiting, unspecified; R74.01 Elevation of levels of liver transaminase levels
CPT/HCPCS: 36415; 70030-TC; 71045; 83605; 83690; 83735; 84100; 84484; 85025; 86803; 87040; 87806; 93005; A4663; G0378; J0360; J1650; J1885; J2185; J2270; J2405; J3370; J3475; J3490; J7040

== ENCOUNTER 2023-01-15 22:06 | Inpatient (IN) | payer MEDICARE, BC ==
[~2023-01-15] VITALS: Ht 165.1 cm; Wt 71.9 kg
[~2023-01-15 22:06] MED LIST changes: +BUPR-53 PO; -CIPR500T5 PO; +LISI10TA29 PO; -LOPE2CAP40 PO; -METR500T PO; +NITR100C11 PO; +gemtesa PO
[2023-01-15] MEDS ORDERED: ONDANSETRON 4 MG/2 ML VIAL IV ONE (22:15)
[2023-01-15] MEDS ORDERED: IV NORMAL SALINE 1000 ML BAG IV ONE ×2 (22:15→22:30)
[2023-01-15] MEDS ORDERED: ONDANSETRON 4 MG/2 ML VIAL ONE (22:29)
[2023-01-15 22:33] LABS: HEMATOCRIT 37.3 % (31.2-41.9); MEAN CORPUSCULAR VOLUME 84.2 fL (75.5-95.3); PLATELET COUNT (AUTO) 304 K/uL (179-408)
[2023-01-15 22:42] LABS: CARBON DIOXIDE 25 mmol/L (21-32); CHLORIDE 99 mmol/L (98-107); CREATININE 1.6 mg/dL (0.6-1.3); GLUCOSE 221 mg/dL (74-106); POTASSIUM 4.9 mmol/L (3.5-5.1); UREA NITROGEN, BLOOD 35 mg/dL (7-18)
[2023-01-15 22:50] LABS: ALANINE AMINOTRANSFERASE 31 U/L (14-59); ALKALINE PHOSPHATASE 133 U/L (50-136); ASPARTATE AMINOTRANSFERASE 21 U/L (15-37); BILIRUBIN,DIRECT 0.1 mg/dL (0.0-0.2); BILIRUBIN,TOTAL 0.4 mg/dL (0.2-1.0); TOTAL PROTEIN, SERUM 7.2 g/dL (6.4-8.2)
[2023-01-15] MEDS ORDERED: LOPE2CAP40 PO (22:59)
[2023-01-16 00:09] LABS: *BILIRUBIN,URIN NEGATIVE (NEGATIVE); *BLOOD, URINE 2+ (NEGATIVE); *COLOR,URINE YELLOW (YELLOW); *KETONES,URINE NEGATIVE (NEGATIVE); *UROBILINOGEN,URINE 0.2 E.U./dl (NORMAL); LEUKOCYTE ESTERASE ,URINE 3+ (NEGATIVE); NITRITE, URINE NEGATIVE (NEGATIVE); PH,URINE 5.5 (5.0-8.0); UGLUCOSE NEGATIVE (NEGATIVE)
[2023-01-16 00:13] LABS: *CLARITY,URINE SLIGHTLY CLOUDY (CLEAR)
[2023-01-16] MEDS ORDERED: MEROPENEM 1 G in IV NORMAL SALINE 100 ML IV ONE (00:15)
[2023-01-16] MEDS ORDERED: MEROPENEM 1GM/NS 100ML IVPB **ER PYXIS ONLY IV ONE (00:18)
[2023-01-16 00:19] LABS: BACTERIA,URINE MANY /HPF (NONE SEEN); RBC,URINE 20-50 /HPF (0-3); SQUAMOUS EPITHELIAL CELL,UR FEW /HPF (NONE SEEN); WBC,URINE TNTC /HPF (0-3)
[2023-01-16] MEDS ORDERED: REMEDY ESSENTIAL ZINC PASTE 113 GM TP PRN (01:30)
[2023-01-16] MEDS ORDERED: IV NS 1000 ML 1,000 ML IV ONE (01:30)
[2023-01-16] MEDS ORDERED: MAGNESIUM HYDROXIDE 30 ML LIQUID UDC PO PRN (01:30)
[2023-01-16] MEDS ORDERED: ONDANSETRON 4 MG/2 ML VIAL IV PRN (01:30)
[2023-01-16 02:47] VITALS: BP 91/54
[2023-01-16 04:42] VITALS: BP 115/60
[2023-01-16] MEDS ORDERED: REMEDY ESSENTIAL ZINC PASTE 113 GM TOP PRN (06:15)
[2023-01-16] MEDS: LEVOTHYROXINE SODIUM 112 MCG TABLET PO SCH (06:40)
[2023-01-16 07:36] LABS: HEMATOCRIT 30.9 % (31.2-41.9); MEAN CORPUSCULAR HEMOGLOBIN 25.7 uug (24.7-32.8); PLATELET COUNT (AUTO) 234 K/uL (179-408)
[2023-01-16 08:23] LABS: CARBON DIOXIDE 26 mmol/L (21-32); CHLORIDE 105 mmol/L (98-107); CREATININE 1.4 mg/dL (0.6-1.3); GLUCOSE 133 mg/dL (74-106); MAGNESIUM 1.6 mg/dL (1.8-2.4); PHOSPHOROUS 4.3 mg/dL (2.5-4.9); POTASSIUM 4.3 mmol/L (3.5-5.1); UREA NITROGEN, BLOOD 33 mg/dL (7-18)
[2023-01-16] MEDS: buPROPion XL 150 MG TAB.SR.24H PO SCH (08:54)
[2023-01-16] MEDS: GABAPENTIN 300 MG CAPSULE PO SCH ×3 (08:54→17:03)
[2023-01-16] MEDS: PANTOPRAZOLE SODIUM 40 MG VIAL IV SCH (08:54)
[2023-01-16] MEDS: DOCUSATE SODIUM 100 MG CAPSULE PO SCH ×2 (08:54→17:00)
[2023-01-16] MEDS: SERTRALINE HCL 100 MG TABLET PO SCH (08:54)
[2023-01-16] MEDS: REMEDY ESSENTIAL ZINC PASTE 113 GM TOP SCH ×2 (08:55→21:00)
[2023-01-16] MEDS: HEPARIN SODIUM,PORCINE 5,000 UNITS/ML VIAL SQ SCH ×2 (08:57→20:48)
[2023-01-16] MEDS ORDERED: MEROPENEM 1 G in IV NORMAL SALINE 100 ML IV SCH (09:15)
[2023-01-16] MEDS ORDERED: MAGNESIUM OXIDE 400 MG TABLET PO ONE (11:00)
[2023-01-16 11:40] VITALS: BP 131/65
[2023-01-16] MEDS ORDERED: DEXTROSE 50% 50 ML DISP.SYRIN IV PRN (12:15)
[2023-01-16] MEDS: BLOOD SUGAR DIAGNOSTIC 1 EACH STRIP VI SCH ×3 (12:15→21:31)
[2023-01-16] MEDS: MEROPENEM 500 MG in IV NORMAL SALINE 50 ML IV SCH (12:30)
[2023-01-16] MEDS: VANCOMYCIN FOR PO/GT/NG USE PO SCH ×2 (17:04→20:46)
[2023-01-16] MEDS: ACETAMINOPHEN 325 MG TABLET PO PRN (17:04)
[2023-01-16] MEDS: INSULIN REGULAR, HUMAN 300 UNIT/3 ML VIAL SQ PRN (17:42)
[2023-01-16 18:18] LABS: *BILIRUBIN,URIN NEGATIVE (NEGATIVE); *CLARITY,URINE CLEAR (CLEAR); *COLOR,URINE YELLOW (YELLOW); *KETONES,URINE NEGATIVE (NEGATIVE); *UROBILINOGEN,URINE 0.2 E.U./dl (NORMAL); LEUKOCYTE ESTERASE ,URINE 2+ (NEGATIVE); NITRITE, URINE NEGATIVE (NEGATIVE); PH,URINE 5.5 (5.0-8.0); UGLUCOSE NEGATIVE (NEGATIVE)
[2023-01-16 18:24] LABS: *CREATININE,URINE 26.9 mg/dL (30-125); *URINE TOTAL PROTEIN RANDOM 10.6 mg/dL (<150/24HR)
[2023-01-16 18:29] LABS: *BLOOD, URINE 1+ (NEGATIVE)
[2023-01-16 18:30] LABS: RBC,URINE 0-3 /HPF (0-3)
[2023-01-16 20:00] VITALS: BP 126/79
[2023-01-16] MEDS: HYDROCODONE/APAP 5-325MG TABLET PO PRN (20:47)
[2023-01-16] MEDS: ATORVASTATIN 20 MG TABLET PO SCH (20:47)
[2023-01-17] VITALS: BP 116/57
[2023-01-17] MEDS: MEROPENEM 500 MG in IV NORMAL SALINE 50 ML IV SCH ×3 (00:02→23:27)
[2023-01-17] MEDS: HYDROCODONE/APAP 5-325MG TABLET PO PRN ×3 (02:34→21:06)
[2023-01-17 04:00] VITALS: BP 107/59
[2023-01-17] MEDS: LEVOTHYROXINE SODIUM 112 MCG TABLET PO SCH (06:17)
[2023-01-17 06:24] LABS: HEMATOCRIT 28.2 % (31.2-41.9); MEAN CORPUSCULAR HEMOGLOBIN 26.1 uug (24.7-32.8); PLATELET COUNT (AUTO) 207 K/uL (179-408)
[2023-01-17 06:49] LABS: ALANINE AMINOTRANSFERASE 22 U/L (14-59); ALKALINE PHOSPHATASE 97 U/L (50-136); ASPARTATE AMINOTRANSFERASE 8 U/L (15-37); BILIRUBIN,TOTAL 0.3 mg/dL (0.2-1.0); CARBON DIOXIDE 27 mmol/L (21-32); CHLORIDE 106 mmol/L (98-107); CREATINE KINASE, TOTAL 19 U/L (26-192); CREATININE 0.9 mg/dL (0.6-1.3); GLUCOSE 106 mg/dL (74-106); MAGNESIUM 1.5 mg/dL (1.8-2.4); PHOSPHOROUS 3.3 mg/dL (2.5-4.9); POTASSIUM 4.2 mmol/L (3.5-5.1); TOTAL PROTEIN, SERUM 5.7 g/dL (6.4-8.2); UREA NITROGEN, BLOOD 18 mg/dL (7-18)
[2023-01-17] MEDS: BLOOD SUGAR DIAGNOSTIC 1 EACH STRIP VI SCH ×4 (07:35→20:40)
[2023-01-17] MEDS: GABAPENTIN 300 MG CAPSULE PO SCH ×3 (08:35→16:47)
[2023-01-17] MEDS: buPROPion XL 150 MG TAB.SR.24H PO SCH (08:35)
[2023-01-17] MEDS: DOCUSATE SODIUM 100 MG CAPSULE PO SCH ×2 (08:36→16:47)
[2023-01-17] MEDS: SERTRALINE HCL 100 MG TABLET PO SCH (08:36)
[2023-01-17] MEDS: PANTOPRAZOLE SODIUM 40 MG VIAL IV SCH (08:36)
[2023-01-17] MEDS: REMEDY ESSENTIAL ZINC PASTE 113 GM TOP SCH ×2 (08:37→20:40)
[2023-01-17 09:05] LABS: BAND % (MANUAL) 1 % (0-10); LYMPHOCYTES % (MANUAL) 21 % (20-40); MONOCYTES % (MANUAL) 16 % (2-10); NEUTROPHILS % (MANUAL) 59 % (42-75); REACTIVE LYMPHOCYTES 3 % (0-0)
[2023-01-17] MEDS: HEPARIN SODIUM,PORCINE 5,000 UNITS/ML VIAL SQ SCH ×2 (09:09→20:38)
[2023-01-17] MEDS: VANCOMYCIN FOR PO/GT/NG USE PO SCH ×4 (09:09→20:26)
[2023-01-17 09:50] LABS: NEUTROPHILS % (MANUAL) 0 % (42-75)
[2023-01-17] MEDS: MAGNESIUM SULFATE/D5W 100 ML IV SCH ×3 (10:03→15:14)
[2023-01-17] MEDS: INSULIN REGULAR, HUMAN 300 UNIT/3 ML VIAL SQ PRN ×2 (11:42→20:39)
[2023-01-17 12:00] VITALS: BP 150/75
[2023-01-17 15:50] VITALS: BP 119/50
[2023-01-17 20:00] VITALS: BP 144/71
[2023-01-17] MEDS: ATORVASTATIN 20 MG TABLET PO SCH (20:26)
[2023-01-18 04:00] VITALS: BP 132/65
[2023-01-18] MEDS: LEVOTHYROXINE SODIUM 112 MCG TABLET PO SCH (06:16)
[2023-01-18] MEDS: BLOOD SUGAR DIAGNOSTIC 1 EACH STRIP VI SCH ×4 (06:31→21:28)
[2023-01-18] MEDS: PANTOPRAZOLE SODIUM 40 MG VIAL IV SCH (09:19)
[2023-01-18] MEDS: VANCOMYCIN FOR PO/GT/NG USE PO SCH ×4 (09:20→20:58)
[2023-01-18] MEDS: SERTRALINE HCL 100 MG TABLET PO SCH (09:20)
[2023-01-18] MEDS: DOCUSATE SODIUM 100 MG CAPSULE PO SCH ×2 (09:20→16:55)
[2023-01-18] MEDS: GABAPENTIN 300 MG CAPSULE PO SCH ×3 (09:20→16:56)
[2023-01-18] MEDS: HEPARIN SODIUM,PORCINE 5,000 UNITS/ML VIAL SQ SCH ×2 (09:22→20:58)
[2023-01-18] MEDS: buPROPion XL 150 MG TAB.SR.24H PO SCH (09:23)
[2023-01-18] MEDS: REMEDY ESSENTIAL ZINC PASTE 113 GM TOP SCH ×2 (09:23→21:09)
[2023-01-18 11:50] VITALS: BP 163/94
[2023-01-18 12:06] LABS: ALBUMIN 2.7 g/dL (2.9-4.4); ALPHA-1-GLOBULIN 0.3 g/dL (0.0-0.4); ALPHA-2-GLOBULIN 0.8 g/dL (0.4-1.0); BETA GLOBULIN 0.7 g/dL (0.7-1.3); GAMMA GLOBULIN 0.9 g/dL (0.4-1.8); GLOBULIN, TOTAL 2.7 g/dL (2.2-3.9); M-SPIKE Not Observed g/dL (Not Observed)
[2023-01-18] MEDS: MEROPENEM 500 MG in IV NORMAL SALINE 50 ML IV SCH ×2 (12:15→23:55)
[2023-01-18] MEDS: INSULIN REGULAR, HUMAN 300 UNIT/3 ML VIAL SQ PRN ×3 (12:18→21:29)
[2023-01-18 16:56] VITALS: BP 150/82
[2023-01-18 20:00] VITALS: BP 148/79
[2023-01-18] MEDS: ATORVASTATIN 20 MG TABLET PO SCH (20:54)
[2023-01-18] MEDS: ACETAMINOPHEN 325 MG TABLET PO PRN (21:09)
[2023-01-19 04:00] VITALS: BP 157/88
[2023-01-19] MEDS: BLOOD SUGAR DIAGNOSTIC 1 EACH STRIP VI SCH ×2 (06:46→11:57)
[2023-01-19] MEDS: LEVOTHYROXINE SODIUM 112 MCG TABLET PO SCH (06:49)
[2023-01-19] MEDS ORDERED: PANTOPRAZOLE SODIUM 40 MG TABLET.DR PO SCH (07:00)
[2023-01-19 08:00] VITALS: BP 138/64
[2023-01-19] MEDS: SERTRALINE HCL 100 MG TABLET PO SCH (08:50)
[2023-01-19] MEDS: buPROPion XL 150 MG TAB.SR.24H PO SCH (08:50)
[2023-01-19] MEDS: HEPARIN SODIUM,PORCINE 5,000 UNITS/ML VIAL SQ SCH (08:51)
[2023-01-19] MEDS: DOCUSATE SODIUM 100 MG CAPSULE PO SCH (08:51)
[2023-01-19] MEDS: GABAPENTIN 300 MG CAPSULE PO SCH ×2 (08:51→12:48)
[2023-01-19] MEDS: VANCOMYCIN FOR PO/GT/NG USE PO SCH ×2 (08:52→12:48)
[2023-01-19] MEDS: REMEDY ESSENTIAL ZINC PASTE 113 GM TOP SCH (08:52)
[2023-01-19] MEDS: HYDROCODONE/APAP 5-325MG TABLET PO PRN (09:54)
[2023-01-19] MEDS ORDERED: CIPR-262 PO (10:25)
[2023-01-19] MEDS ORDERED: FLUCONAZOLE 200 MG/NS 100ML IV 200 MG in PREMIXED 1 EACH IV STA (10:30)
[2023-01-19] MEDS ORDERED: METR500T PO (11:00)
[2023-01-19 11:31] LABS: MEAN CORPUSCULAR HEMOGLOBIN 26.4 uug (24.7-32.8); MEAN CORPUSCULAR VOLUME 82.8 fL (75.5-95.3); PLATELET COUNT (AUTO) 235 K/uL (179-408)
[2023-01-19 11:32] VITALS: BP 162/91
[2023-01-19] MEDS: INSULIN REGULAR, HUMAN 300 UNIT/3 ML VIAL SQ PRN (11:59)
[2023-01-19] MEDS: MEROPENEM 500 MG in IV NORMAL SALINE 50 ML IV SCH (12:17)
[2023-01-19] MEDS: ACETAMINOPHEN 325 MG TABLET PO PRN (12:48)
[2023-01-19] MEDS ORDERED: GLUCERNA SHAKE 237 ML CAN PO SCH (17:00)
== END 2023-01-19 13:20 | disposition home or self-care (01) | DRG 871 ==
LOC: ER 22:09 → TELE3 01-16 01:11 → MEDSURG3 01-17 09:27
PROVIDERS: ADMIT Nurse Practitioner Acute Care; ATTEND Internal Medicine
DX: A41.9 Sepsis, unspecified organism (principal); N17.0 Acute kidney failure with tubular necrosis; R65.21 Severe sepsis with septic shock; N39.0 Urinary tract infection, site not specified; I31.39 Other pericardial effusion (noninflammatory); K52.9 Noninfective gastroenteritis and colitis, unspecified; E86.0 Dehydration; R55 Syncope and collapse; I35.0 Nonrheumatic aortic (valve) stenosis; J01.30 Acute sphenoidal sinusitis, unspecified; K57.30 Diverticulosis of large intestine without perforation or abscess without bleeding; D35.02 Benign neoplasm of left adrenal gland; E03.9 Hypothyroidism, unspecified; M43.12 Spondylolisthesis, cervical region; Z87.440 Personal history of urinary (tract) infections; Z79.899 Other long term (current) drug therapy; Z90.710 Acquired absence of both cervix and uterus; Z90.49 Acquired absence of other specified parts of digestive tract; Z93.59 Other cystostomy status; E78.5 Hyperlipidemia, unspecified; E11.42 Type 2 diabetes mellitus with diabetic polyneuropathy; D64.9 Anemia, unspecified; R19.03 Right lower quadrant abdominal swelling, mass and lump; Z96.641 Presence of right artificial hip joint; I10 Essential (primary) hypertension
CPT/HCPCS: 36415; 70030-TC; 70450; 70490; 71045; 76856; 83605; 83690; 83735; 83970; 84100; 84155; 84165; 84300; 84484; 85025; 85730; 87040; 93005; 93307; A6213; C9113; G0378; J1450; J1644; J1815; J2185; J2405; J3370; J3475; J7040

== ENCOUNTER 2023-06-20 20:31 | Inpatient (IN) | payer MEDICARE, BC ==
[~2023-06-20] VITALS: Ht 165.1 cm; Wt 67.1 kg
[~2023-06-20 20:31] MED LIST changes: +CIPR-262 PO; +LOPE2CAP40 PO; +METR500T PO; -NITR100C11 PO
[2023-06-20] MEDS ORDERED: IV NORMAL SALINE 1000 ML BAG IV ONE (20:45)
[2023-06-20] MEDS ORDERED: MORPHINE SULFATE 2 MG/1 ML DISP.SYRIN IV ONE (20:45)
[2023-06-20] MEDS ORDERED: ONDANSETRON 4 MG/2 ML VIAL IV ONE (20:45)
[2023-06-20] MEDS ORDERED: ONDANSETRON 4 MG/2 ML VIAL ONE (20:48)
[2023-06-20] MEDS ORDERED: MORPHINE SULFATE 2 MG/1 ML DISP.SYRIN ONE (20:49)
[2023-06-20 21:10] LABS: BASOPHILS % (AUTO) 0.8 % (0.0-2.0); EOSINOPHILS % (AUTO) 0.9 % (0.0-7.0); HEMATOCRIT 34.3 % (31.2-41.9); HEMOGLOBIN 10.8 g/dL (10.9-14.3); LYMPHOCYTES # (AUTO) 1.2 K/uL (0.8-4.8); MEAN CORPUSCULAR HEMOGLOBIN 25.7 uug (24.7-32.8); MEAN CORPUSCULAR HGB CONC 31 g/dL (32.3-35.6); MEAN CORPUSCULAR VOLUME 81.9 fL (75.5-95.3); MONOCYTES # (AUTO) 0.8 K/uL (0.1-1.30); NEUTROPHILS # (AUTO) 2.3 K/uL (1.8-8.9); NEUTROPHILS % (AUTO) 52.6 % (38.5-71.5); PLATELET COUNT (AUTO) 198 K/uL (179-408); RED BLOOD CELL COUNT(AUTO) 4.18 MIL/uL (3.63-4.92); RED CELL DISTRIBUTION WIDTH 18.3 % (12.3-17.7); WHITE BLOOD COUNT (AUTO) 4.4 K/uL (3.8-11.8)
[2023-06-20 21:29] LABS: CALCIUM 8.8 mg/dL (8.5-10.1); CARBON DIOXIDE 21 mmol/L (21-32); CHLORIDE 99 mmol/L (98-107); CREATININE 0.9 mg/dL (0.6-1.3); GLUCOSE 133 mg/dL (74-106); POTASSIUM 3.5 mmol/L (3.5-5.1); SODIUM SERUM 136 mmol/L (136-145); UREA NITROGEN, BLOOD 15 mg/dL (7-18)
[2023-06-20] MEDS ORDERED: BUPR300T52 PO (21:33)
[2023-06-20] MEDS ORDERED: GABA600T PO ×2 (21:33)
[2023-06-20 21:36] LABS: ACETAMINOPHEN < 2.0 ug/mL (10-30); ETHANOL < 3 MG/DL (0-10)
[2023-06-20 21:38] LABS: ALANINE AMINOTRANSFERASE 307 U/L (14-59); ALBUMIN 3.3 g/dL (3.4-5.0); ALKALINE PHOSPHATASE 239 U/L (50-136); ASPARTATE AMINOTRANSFERASE 253 U/L (15-37); BILIRUBIN,DIRECT 0.1 mg/dL (0.0-0.2); BILIRUBIN,TOTAL 0.5 mg/dL (0.2-1.0); LIPASE 37 U/L (16-77); TOTAL PROTEIN, SERUM 6.9 g/dL (6.4-8.2)
[2023-06-20 21:41] LABS: DIFFERENTIAL COMMENT 1
[2023-06-20 21:42] LABS: LYMPHOCYTES % (AUTO) 31.6 % (20.5-51.5)
[2023-06-20] MEDS ORDERED: SWABABLE VALVE TRANSFER SET EA MC ONE (22:14)
[2023-06-20] MEDS ORDERED: IV NORMAL SALINE 250 ML IV ONE (22:14)
[2023-06-20] MEDS ORDERED: IOHEXOL 300MG/ML 100 ML INFUS..BTL ONE (22:14)
[2023-06-20 23:11] LABS: *BILIRUBIN,URIN NEGATIVE (NEGATIVE); *BLOOD, URINE 2+ (NEGATIVE); *CLARITY,URINE SLIGHTLY CLOUDY (CLEAR); *COLOR,URINE YELLOW (YELLOW); *KETONES,URINE 2+ (NEGATIVE); *PROTEIN,URINE 2+ (NEGATIVE); *UROBILINOGEN,URINE 0.2 E.U./dl (NORMAL); LEUKOCYTE ESTERASE ,URINE 1+ (NEGATIVE); NITRITE, URINE POSITIVE (NEGATIVE); UGLUCOSE NEGATIVE (NEGATIVE)
[2023-06-20 23:29] LABS: *AMPHETAMINE, URINE NEGATIVE (NEGATIVE); *BARBITURATE, URINE NEGATIVE (NEGATIVE); *BENZODIAZEPINE, URINE NEGATIVE (NEGATIVE); *CANNABINOID, URINE NEGATIVE (NEGATIVE); *COCCAINE, URINE NEGATIVE (NEGATIVE); *OPIATE, URINE POSITIVE (NEGATIVE); *PHENCYCLIDINE SCREEN,URINE NEGATIVE (NEGATIVE); FENTANYL, URINE NEGATIVE (NEGATIVE)
[2023-06-20 23:30] LABS: BACTERIA,URINE MANY /HPF (NONE SEEN); SQUAMOUS EPITHELIAL CELL,UR FEW /HPF (NONE SEEN); WBC,URINE 80-100 /HPF (0-3)
[2023-06-20] MEDS ORDERED: CEFTRIAXONE 1 G in IV DEXTROSE 5% 50 ML IV ONE (23:30)
[2023-06-20] MEDS ORDERED: CEFTRIAXONE /D5W 50ML IVPB **ER PYXIS IV ONE (23:35)
[2023-06-20] MEDS ORDERED: hydrALAZINE HCL 20 MG/1 ML VIAL IV ONE (23:45)
[2023-06-20] MEDS ORDERED: hydrALAZINE HCL 20 MG/1 ML VIAL ONE (23:50)
[2023-06-21] MEDS ORDERED: MAGNESIUM HYDROXIDE 30 ML LIQUID UDC PO PRN (00:15)
[2023-06-21] MEDS ORDERED: IV NS 1000 ML 1,000 ML IV SCH (00:15)
[2023-06-21 04:00] VITALS: BP 171/97; TEMP 98.6; O2SAT 98
[2023-06-21] MEDS: hydrALAZINE HCL 20 MG/1 ML VIAL IV PRN ×4 (04:32→20:54)
[2023-06-21] MEDS ORDERED: LEVOTHYROXINE SODIUM 112 MCG TABLET PO SCH (07:00)
[2023-06-21] MEDS ORDERED: PANTOPRAZOLE SODIUM 40 MG TABLET.DR PO SCH (07:30)
[2023-06-21] MEDS: ONDANSETRON 4 MG/2 ML VIAL IV PRN ×2 (07:58→17:09)
[2023-06-21] MEDS: ACETAMINOPHEN 325 MG TABLET PO PRN (07:58)
[2023-06-21] MEDS: MORPHINE SULFATE 2 MG/1 ML DISP.SYRIN IVP PRN ×3 (08:08→17:10)
[2023-06-21 08:36] LABS: ALANINE AMINOTRANSFERASE 232 U/L (14-59); ALKALINE PHOSPHATASE 214 U/L (50-136); ASPARTATE AMINOTRANSFERASE 136 U/L (15-37); BILIRUBIN,TOTAL 0.3 mg/dL (0.2-1.0); CALCIUM 8.2 mg/dL (8.5-10.1); CARBON DIOXIDE 20 mmol/L (21-32); CHLORIDE 101 mmol/L (98-107); CREATININE 0.7 mg/dL (0.6-1.3); GLUCOSE 126 mg/dL (74-106); POTASSIUM 3.3 mmol/L (3.5-5.1); SODIUM SERUM 137 mmol/L (136-145); TOTAL PROTEIN, SERUM 6.5 g/dL (6.4-8.2); UREA NITROGEN, BLOOD 12 mg/dL (7-18)
[2023-06-21] MEDS ORDERED: Medication Not On Formulary EA (Omeprazole 40 MG) PO SCH (09:00)
[2023-06-21] MEDS: DOCUSATE SODIUM 100 MG CAPSULE PO SCH ×2 (09:00→17:00)
[2023-06-21] MEDS: GABAPENTIN 300 MG CAPSULE PO SCH (09:00)
[2023-06-21] MEDS: buPROPion XL 150 MG TAB.SR.24H PO SCH (09:00)
[2023-06-21] MEDS: ATORVASTATIN 20 MG TABLET PO SCH (09:00)
[2023-06-21] MEDS ORDERED: SERTRALINE HCL 100 MG TABLET PO SCH (09:00)
[2023-06-21] MEDS ORDERED: DOCUSATE SODIUM 100 MG CAPSULE PO SCH (09:00)
[2023-06-21] MEDS ORDERED: LISINOPRIL 10 MG TABLET PO SCH (09:00)
[2023-06-21] MEDS: IV D5 1/2 NS 1000 ML 1,000 ML IV SCH ×2 (09:33→22:36)
[2023-06-21] MEDS ORDERED: HALOPERIDOL LACTATE 5 MG/1 ML VIAL IM ONE (09:51)
[2023-06-21 10:06] VITALS: BP 157/85; TEMP 98.8; O2SAT 98
[2023-06-21] MEDS ORDERED: POTASSIUM CHLORIDE 10 MEQ TAB.PRT.SR PO SCH (11:00)
[2023-06-21] MEDS ORDERED: QUETIAPINE FUMARATE 25 MG TABLET PO PRN (12:30)
[2023-06-21] MEDS ORDERED: QUETIAPINE FUMARATE 25 MG TABLET PO SCH (13:00)
[2023-06-21] MEDS: HEPARIN SODIUM,PORCINE 5,000 UNITS/ML VIAL SQ SCH ×2 (13:17→20:58)
[2023-06-21] MEDS: PANTOPRAZOLE SODIUM 40 MG VIAL IV SCH (15:57)
[2023-06-21 16:00] VITALS: BP 144/80; TEMP 98.3; O2SAT 98
[2023-06-21] MEDS: POTASSIUM CHLORIDE 50 ML IV SCH ×4 (16:59→18:41)
[2023-06-21] MEDS ORDERED: HALOPERIDOL LACTATE 5 MG/1 ML VIAL IV PRN (17:45)
[2023-06-21] MEDS ORDERED: VANCOMYCIN FOR PO/GT/NG USE PO SCH (18:00)
[2023-06-21] MEDS ORDERED: OLANZAPINE 10 MG VIAL IM PRN (18:45)
[2023-06-21 20:30] VITALS: BP 170/91; TEMP 98.5; O2SAT 99
[2023-06-21] MEDS: GABAPENTIN 400 MG CAPSULE PO SCH (21:00)
[2023-06-21] MEDS ORDERED: CEFTRIAXONE 1 G in IV DEXTROSE 5% 50 ML IV SCH (21:00)
[2023-06-21] MEDS ORDERED: MEROPENEM 1 G in IV NORMAL SALINE 100 ML IV SCH (22:00)
[2023-06-21] MEDS: MEROPENEM 1 G in IV NORMAL SALINE 100 ML IV SCH (22:12)
[2023-06-21] MEDS ORDERED: POTASSIUM CHLORIDE 50 ML IV SCH (22:30)
[2023-06-22] VITALS (7 sets, daily range): BP systolic 145–196; BP diastolic 71–98; TEMP 97.9–99; O2SAT 95–99
[2023-06-22] MEDS: hydrALAZINE HCL 20 MG/1 ML VIAL IV PRN (04:31)
[2023-06-22] MEDS: ONDANSETRON 4 MG/2 ML VIAL IV PRN ×2 (04:53→16:23)
[2023-06-22] MEDS: MORPHINE SULFATE 2 MG/1 ML DISP.SYRIN IVP PRN (05:10)
[2023-06-22] MEDS: VANCOMYCIN FOR PO/GT/NG USE PO SCH ×3 (06:00→17:42)
[2023-06-22] MEDS: MEROPENEM 1 G in IV NORMAL SALINE 100 ML IV SCH ×2 (06:06→17:42)
[2023-06-22 06:52] LABS: BASOPHILS % (AUTO) 0.4 % (0.0-2.0); EOSINOPHILS % (AUTO) 0.7 % (0.0-7.0); HEMATOCRIT 36.4 % (31.2-41.9); HEMOGLOBIN 11.4 g/dL (10.9-14.3); LYMPHOCYTES # (AUTO) 1.5 K/uL (0.8-4.8); LYMPHOCYTES % (AUTO) 26.9 % (20.5-51.5); MEAN CORPUSCULAR HEMOGLOBIN 25.9 uug (24.7-32.8); MEAN CORPUSCULAR HGB CONC 31 g/dL (32.3-35.6); MEAN CORPUSCULAR VOLUME 82.5 fL (75.5-95.3); MONOCYTES % (AUTO) 16.9 % (0.0-11.0); NEUTROPHILS # (AUTO) 3.1 K/uL (1.8-8.9); NEUTROPHILS % (AUTO) 55.1 % (38.5-71.5); PLATELET COUNT (AUTO) 197 K/uL (179-408); RED BLOOD CELL COUNT(AUTO) 4.41 MIL/uL (3.63-4.92); RED CELL DISTRIBUTION WIDTH 18.5 % (12.3-17.7); WHITE BLOOD COUNT (AUTO) 5.7 K/uL (3.8-11.8)
[2023-06-22] MEDS: LEVOTHYROXINE SODIUM 125 MCG TABLET PO SCH (07:00)
[2023-06-22 07:06] LABS: DIFFERENTIAL COMMENT 0
[2023-06-22 07:26] LABS: BILIRUBIN,TOTAL 0.3 mg/dL (0.2-1.0); CALCIUM 8.4 mg/dL (8.5-10.1); CREATININE 0.9 mg/dL (0.6-1.3); PHOSPHOROUS 3.3 mg/dL (2.5-4.9); POTASSIUM 3.3 mmol/L (3.5-5.1); TOTAL PROTEIN, SERUM 6.8 g/dL (6.4-8.2)
[2023-06-22] MEDS ORDERED: CLONIDINE-TTS 1 PATCH TD SCH (09:00)
[2023-06-22] MEDS: POTASSIUM CHLORIDE 10 MEQ, LIDOCAINE-MPF 1% 1 ML in IV DEXTROSE 5% 100 ML IV SCH ×4 (09:05→13:05)
[2023-06-22] MEDS: HEPARIN SODIUM,PORCINE 5,000 UNITS/ML VIAL SQ SCH ×2 (09:05→20:40)
[2023-06-22] MEDS: PANTOPRAZOLE SODIUM 40 MG VIAL IV SCH (09:25)
[2023-06-22] MEDS: ATORVASTATIN 20 MG TABLET PO SCH (09:25)
[2023-06-22] MEDS: DOCUSATE SODIUM 100 MG CAPSULE PO SCH ×2 (09:25→17:41)
[2023-06-22] MEDS: buPROPion XL 150 MG TAB.SR.24H PO SCH (09:26)
[2023-06-22] MEDS: LISINOPRIL 10 MG TABLET PO SCH (09:26)
[2023-06-22] MEDS: GABAPENTIN 300 MG CAPSULE PO SCH (09:27)
[2023-06-22] MEDS: SERTRALINE HCL 100 MG TABLET PO SCH (09:31)
[2023-06-22] MEDS: IV D5 1/2 NS 1000 ML 1,000 ML IV SCH (10:56)
[2023-06-22 11:19] LABS: ANISOCYTOSIS 1+; EOSINOPHILS % (MANUAL) 1 % (0-8); LYMPHOCYTES % (MANUAL) 28 % (20-40); MONOCYTES % (MANUAL) 15 % (2-10); NEUTROPHILS % (MANUAL) 56 % (42-75); PLATELET ESTIMATE ADEQUATE
[2023-06-22 11:20] LABS: HYPOCHROMASIA 1+; OVALOCYTES OCC
[2023-06-22] MEDS ORDERED: MEROPENEM 1 G in IV NORMAL SALINE 100 ML IV SCH (14:00)
[2023-06-22 15:21] LABS: AMMONIA 16 umol/L (11-32)
[2023-06-22] MEDS ORDERED: POTASSIUM CHLORIDE 50 ML IV SCH (16:15)
[2023-06-22] MEDS: GABAPENTIN 400 MG CAPSULE PO SCH (20:40)
[2023-06-22] MEDS: ACETAMINOPHEN 325 MG TABLET PO PRN (20:40)
[2023-06-23] MEDS: IV D5 1/2 NS 1000 ML 1,000 ML IV SCH ×2 (00:07→11:40)
[2023-06-23 00:10] VITALS: BP 120/70; TEMP 98.1; O2SAT 93
[2023-06-23] MEDS: VANCOMYCIN FOR PO/GT/NG USE PO SCH ×5 (00:31→23:21)
[2023-06-23 04:20] VITALS: BP 112/62; TEMP 98.2; O2SAT 96
[2023-06-23] MEDS: MEROPENEM 1 G in IV NORMAL SALINE 100 ML IV SCH ×2 (05:09→17:38)
[2023-06-23] MEDS: ACETAMINOPHEN 325 MG TABLET PO PRN ×2 (05:18→23:33)
[2023-06-23] MEDS: LEVOTHYROXINE SODIUM 125 MCG TABLET PO SCH (06:12)
[2023-06-23 07:49] LABS: BASOPHILS % (AUTO) 0.6 % (0.0-2.0); EOSINOPHILS # (AUTO) 0.1 K/uL (0.0-0.7); EOSINOPHILS % (AUTO) 1.7 % (0.0-7.0); HEMATOCRIT 30.9 % (31.2-41.9); HEMOGLOBIN 9.8 g/dL (10.9-14.3); LYMPHOCYTES # (AUTO) 2.1 K/uL (0.8-4.8); LYMPHOCYTES % (AUTO) 32.9 % (20.5-51.5); MEAN CORPUSCULAR HEMOGLOBIN 26.1 uug (24.7-32.8); MEAN CORPUSCULAR HGB CONC 32 g/dL (32.3-35.6); MEAN CORPUSCULAR VOLUME 82.6 fL (75.5-95.3); MONOCYTES # (AUTO) 0.9 K/uL (0.1-1.30); MONOCYTES % (AUTO) 13.9 % (0.0-11.0); NEUTROPHILS # (AUTO) 3.3 K/uL (1.8-8.9); NEUTROPHILS % (AUTO) 50.9 % (38.5-71.5); PLATELET COUNT (AUTO) 171 K/uL (179-408); RED BLOOD CELL COUNT(AUTO) 3.74 MIL/uL (3.63-4.92); RED CELL DISTRIBUTION WIDTH 18.1 % (12.3-17.7); WHITE BLOOD COUNT (AUTO) 6.5 K/uL (3.8-11.8)
[2023-06-23 07:52] LABS: DIFFERENTIAL COMMENT 1
[2023-06-23 08:04] LABS: ALBUMIN 2.5 g/dL (3.4-5.0); BILIRUBIN,TOTAL 0.3 mg/dL (0.2-1.0); CALCIUM 7.8 mg/dL (8.5-10.1); CREATININE 1.1 mg/dL (0.6-1.3); POTASSIUM 3.6 mmol/L (3.5-5.1); TOTAL PROTEIN, SERUM 5.6 g/dL (6.4-8.2)
[2023-06-23] MEDS: buPROPion XL 150 MG TAB.SR.24H PO SCH (08:56)
[2023-06-23] MEDS: SERTRALINE HCL 100 MG TABLET PO SCH (08:56)
[2023-06-23] MEDS: HEPARIN SODIUM,PORCINE 5,000 UNITS/ML VIAL SQ SCH ×2 (08:57→21:15)
[2023-06-23] MEDS: DOCUSATE SODIUM 100 MG CAPSULE PO SCH ×2 (08:57→17:38)
[2023-06-23] MEDS: LISINOPRIL 10 MG TABLET PO SCH (08:57)
[2023-06-23] MEDS: PANTOPRAZOLE SODIUM 40 MG VIAL IV SCH (08:58)
[2023-06-23] MEDS: GABAPENTIN 300 MG CAPSULE PO SCH (08:58)
[2023-06-23] MEDS: ATORVASTATIN 20 MG TABLET PO SCH (08:59)
[2023-06-23] MEDS: ONDANSETRON 4 MG/2 ML VIAL IV PRN ×2 (09:13→18:53)
[2023-06-23 12:00] VITALS: BP 104/62; TEMP 97.8; O2SAT 97
[2023-06-23 15:58] VITALS: BP 137/76; TEMP 97.8; O2SAT 97
[2023-06-23] MEDS: IV D5 1/2 NS 1000 ML 1,000 ML IV PRN (16:15)
[2023-06-23] MEDS: GLUCERNA SHAKE 237 ML CAN PO SCH (17:38)
[2023-06-23 20:06] VITALS: BP 131/83; TEMP 98.9; O2SAT 97
[2023-06-23] MEDS: GABAPENTIN 400 MG CAPSULE PO SCH (21:08)
[2023-06-24] MEDS: MEROPENEM 1 G in IV NORMAL SALINE 100 ML IV SCH ×2 (05:03→17:05)
[2023-06-24] MEDS: VANCOMYCIN FOR PO/GT/NG USE PO SCH ×4 (05:03→23:31)
[2023-06-24 05:24] VITALS: BP 139/76; TEMP 97.6; O2SAT 98
[2023-06-24] MEDS: LEVOTHYROXINE SODIUM 125 MCG TABLET PO SCH (06:08)
[2023-06-24] MEDS: PANTOPRAZOLE SODIUM 40 MG TABLET.DR PO SCH (06:08)
[2023-06-24] MEDS: DOCUSATE SODIUM 100 MG CAPSULE PO SCH ×2 (08:34→16:07)
[2023-06-24] MEDS: SERTRALINE HCL 100 MG TABLET PO SCH (08:34)
[2023-06-24] MEDS: GABAPENTIN 300 MG CAPSULE PO SCH (08:35)
[2023-06-24] MEDS: ATORVASTATIN 20 MG TABLET PO SCH (08:35)
[2023-06-24] MEDS: buPROPion XL 150 MG TAB.SR.24H PO SCH (08:36)
[2023-06-24] MEDS: HEPARIN SODIUM,PORCINE 5,000 UNITS/ML VIAL SQ SCH ×2 (08:40→21:06)
[2023-06-24] MEDS: LISINOPRIL 10 MG TABLET PO SCH (08:46)
[2023-06-24] MEDS: GLUCERNA SHAKE 237 ML CAN PO SCH ×3 (08:49→16:07)
[2023-06-24] MEDS: ONDANSETRON 4 MG/2 ML VIAL IV PRN ×2 (11:03→17:06)
[2023-06-24 11:17] VITALS: BP 145/79; TEMP 98.2; O2SAT 97
[2023-06-24] MEDS: IV D5 1/2 NS 1000 ML 1,000 ML IV PRN (11:30)
[2023-06-24] MEDS: ACETAMINOPHEN 325 MG TABLET PO PRN (13:59)
[2023-06-24 15:04] VITALS: BP 156/82; TEMP 97.6; O2SAT 96
[2023-06-24 20:15] VITALS: BP 142/76; TEMP 98.1; O2SAT 98
[2023-06-24] MEDS: GABAPENTIN 400 MG CAPSULE PO SCH (21:05)
[2023-06-24] MEDS: TRAMADOL HCL 50 MG TABLET PO PRN (23:31)
[2023-06-25] VITALS: BP 139/82; TEMP 98.5
[2023-06-25 04:15] VITALS: BP 102/61; TEMP 97.5
[2023-06-25] MEDS: MEROPENEM 1 G in IV NORMAL SALINE 100 ML IV SCH ×2 (05:32→17:22)
[2023-06-25] MEDS: VANCOMYCIN FOR PO/GT/NG USE PO SCH ×4 (05:34→23:26)
[2023-06-25] MEDS: PANTOPRAZOLE SODIUM 40 MG TABLET.DR PO SCH (06:02)
[2023-06-25] MEDS: LEVOTHYROXINE SODIUM 125 MCG TABLET PO SCH (06:02)
[2023-06-25] MEDS: GLUCERNA SHAKE 237 ML CAN PO SCH ×3 (08:44→17:23)
[2023-06-25] MEDS: DOCUSATE SODIUM 100 MG CAPSULE PO SCH ×2 (08:53→17:23)
[2023-06-25] MEDS: buPROPion XL 150 MG TAB.SR.24H PO SCH (08:55)
[2023-06-25] MEDS: GABAPENTIN 300 MG CAPSULE PO SCH (08:55)
[2023-06-25] MEDS: LISINOPRIL 10 MG TABLET PO SCH (08:56)
[2023-06-25] MEDS: ATORVASTATIN 20 MG TABLET PO SCH (08:57)
[2023-06-25] MEDS: SERTRALINE HCL 100 MG TABLET PO SCH (08:57)
[2023-06-25] MEDS: HEPARIN SODIUM,PORCINE 5,000 UNITS/ML VIAL SQ SCH ×2 (09:02→20:14)
[2023-06-25] MEDS: ONDANSETRON 4 MG/2 ML VIAL IV PRN ×2 (10:35→17:23)
[2023-06-25 11:26] VITALS: BP 143/82; TEMP 98; O2SAT 91
[2023-06-25 15:12] VITALS: BP 136/78; TEMP 98.4; O2SAT 96
[2023-06-25] MEDS: TRAMADOL HCL 50 MG TABLET PO PRN (19:59)
[2023-06-25 20:00] VITALS: BP 131/67; TEMP 98.2; O2SAT 96
[2023-06-25] MEDS: GABAPENTIN 400 MG CAPSULE PO SCH (20:13)
[2023-06-25] MEDS ORDERED: TRAZODONE 50 MG TABLET PO ONE (22:00)
[2023-06-25] MEDS: IV D5 1/2 NS 1000 ML 1,000 ML IV PRN (23:11)
[2023-06-26 04:43] VITALS: BP 137/81; TEMP 98.4; O2SAT 96
[2023-06-26] MEDS: VANCOMYCIN FOR PO/GT/NG USE PO SCH ×2 (06:00→06:02)
[2023-06-26] MEDS: PANTOPRAZOLE SODIUM 40 MG TABLET.DR PO SCH ×2 (06:02→06:27)
[2023-06-26] MEDS: LEVOTHYROXINE SODIUM 125 MCG TABLET PO SCH ×2 (06:02→06:27)
[2023-06-26] MEDS: GLUCERNA SHAKE 237 ML CAN PO SCH ×3 (08:12→16:55)
[2023-06-26] MEDS: buPROPion XL 150 MG TAB.SR.24H PO SCH (08:52)
[2023-06-26] MEDS: GABAPENTIN 300 MG CAPSULE PO SCH (08:52)
[2023-06-26] MEDS: ATORVASTATIN 20 MG TABLET PO SCH (08:52)
[2023-06-26] MEDS: SERTRALINE HCL 100 MG TABLET PO SCH (08:53)
[2023-06-26] MEDS: DOCUSATE SODIUM 100 MG CAPSULE PO SCH ×2 (08:53→16:55)
[2023-06-26] MEDS: LISINOPRIL 10 MG TABLET PO SCH (08:53)
[2023-06-26] MEDS: HEPARIN SODIUM,PORCINE 5,000 UNITS/ML VIAL SQ SCH (08:54)
[2023-06-26] MEDS: ONDANSETRON 4 MG/2 ML VIAL IV PRN (10:33)
[2023-06-26 11:30] VITALS: BP 105/75; TEMP 97.7; O2SAT 95
[2023-06-26] MEDS: IV D5 1/2 NS 1000 ML 1,000 ML IV PRN (13:30)
[2023-06-26 15:10] VITALS: BP 131/75; TEMP 98.6; O2SAT 93
[2023-06-26] MEDS ORDERED: ACET325T53 PO (16:09)
[2023-06-26] MEDS ORDERED: LEVO125T8 PO (16:09)
[2023-06-26] MEDS ORDERED: NUT.237L36 PO (16:09)
[2023-06-26] MEDS ORDERED: HEPA50007 SQ (16:09)
[2023-06-26] MEDS ORDERED: VANC500V PO (16:09)
[2023-06-26] MEDS ORDERED: TRAM50TA2 PO (16:09)
[2023-06-26] MEDS ORDERED: MAGN400O6 PO (16:09)
[2023-06-26] MEDS ORDERED: LISI10TA29 PO (16:09)
[2023-06-26] MEDS ORDERED: PANT40TA49 PO (16:09)
[2023-06-26] MEDS ORDERED: GUAIFENESIN/DEXTROMETHORPHAN 5 ML UDC PO PRN (17:00)
[2023-06-27] MEDS ORDERED: VANCOMYCIN FOR PO/GT/NG USE PO SCH (09:00)
== END 2023-06-26 18:37 | DRG 689 ==
LOC: ER 20:33 → MEDSURG3 06-21 00:12 → TELE3 06-21 17:36 → MEDSURG3 06-25 09:40
PROVIDERS: ADMIT Internal Medicine; ATTEND Internal Medicine
DX: N39.0 Urinary tract infection, site not specified (principal); G92.8 Other toxic encephalopathy; Z16.24 Resistance to multiple antibiotics; I31.39 Other pericardial effusion (noninflammatory); Z16.12 Extended spectrum beta lactamase (ESBL) resistance; R62.7 Adult failure to thrive; E86.0 Dehydration; J47.9 Bronchiectasis, uncomplicated; B96.1 Klebsiella pneumoniae [K. pneumoniae] as the cause of diseases classified elsewhere; D64.9 Anemia, unspecified; E87.6 Hypokalemia; E78.5 Hyperlipidemia, unspecified; E67.8 Other specified hyperalimentation; G89.29 Other chronic pain; M19.90 Unspecified osteoarthritis, unspecified site; N28.1 Cyst of kidney, acquired; Z96.641 Presence of right artificial hip joint; Z87.440 Personal history of urinary (tract) infections; Z90.710 Acquired absence of both cervix and uterus; Z93.6 Other artificial openings of urinary tract status; D35.02 Benign neoplasm of left adrenal gland; Z79.899 Other long term (current) drug therapy; Z87.19 Personal history of other diseases of the digestive system; R19.03 Right lower quadrant abdominal swelling, mass and lump; Z79.890 Hormone replacement therapy; F41.9 Anxiety disorder, unspecified; F39 Unspecified mood [affective] disorder; E11.9 Type 2 diabetes mellitus without complications; E03.9 Hypothyroidism, unspecified; I10 Essential (primary) hypertension; Z87.01 Personal history of pneumonia (recurrent); I35.0 Nonrheumatic aortic (valve) stenosis; K52.89 Other specified noninfective gastroenteritis and colitis; Z90.49 Acquired absence of other specified parts of digestive tract
CPT/HCPCS: 36415; 70030-TC; 70450; 71045; 82747; 83605; 83690; 83921; 84100; 84443; 84484; 85014; 85025; 87040; 93005; C1758; C9113; G0378; G0480; J0360; J0696; J1630; J1644; J2001; J2185; J2270; J2358; J2405; J3370; J3480; J7040; Q9967

== ENCOUNTER 2023-06-26 18:38 | Inpatient (IN) | payer MEDICARE, BC ==
[~2023-06-26] VITALS: Ht 160 cm; Wt 69.9 kg
[~2023-06-26 18:38] MED LIST changes: +ACET325T53 PO; -BUPR-53 PO; +BUPR300T52 PO; -CIPR-262 PO; +GABA600T PO; -GABA600T12 PO; +HEPA50007 SQ; -HYDR-3972 PO; +LEVO125T8 PO; -LOPE2CAP40 PO; +MAGN400O6 PO; -METF-886 PO; -METR500T PO; +NUT.237L36 PO; +PANT40TA49 PO; +TRAM50TA2 PO; +VANC500V PO; -gemtesa PO
[2023-06-26 20:49] VITALS: BP 136/70; TEMP 98.6; O2SAT 94
[2023-06-26] MEDS: MULTIVITAMINS,THERAPEUTIC TABLET PO SCH (21:20)
[2023-06-26] MEDS: ONDANSETRON ODT 4 MG TAB.RAPDIS SL PRN (21:20)
[2023-06-26] MEDS ORDERED: ONDANSETRON ODT 4 MG TAB.RAPDIS SL ONE (22:15)
[2023-06-27 04:55] VITALS: BP 136/83; TEMP 98.5; O2SAT 96
[2023-06-27] MEDS ORDERED: MAGNESIUM HYDROXIDE 30 ML LIQUID UDC PO PRN (07:30)
[2023-06-27] MEDS ORDERED: ACETAMINOPHEN 325 MG TABLET-SA PATIENTS-PAIN ONLY PO PRN (07:30)
[2023-06-27] MEDS: GLUCERNA 1.2 1000ML LIQUID PO SCH ×3 (08:00→16:18)
[2023-06-27] MEDS: MULTIVITAMINS,THERAPEUTIC TABLET PO SCH (08:30)
[2023-06-27] MEDS ORDERED: Medication Not On Formulary EA (Bupropion Hcl (Wellbutrin Xl) 300 MG) PO SCH (09:00)
[2023-06-27] MEDS ORDERED: Medication Not On Formulary EA (Gabapentin (Neurontin) 600 MG) PO SCH (09:00)
[2023-06-27] MEDS: GABAPENTIN 300 MG CAPSULE PO SCH (09:06)
[2023-06-27] MEDS: LISINOPRIL 10 MG TABLET PO SCH (09:06)
[2023-06-27] MEDS: buPROPion XL 150 MG TAB.SR.24H PO SCH (09:06)
[2023-06-27] MEDS: DOCUSATE SODIUM 100 MG CAPSULE PO SCH ×2 (09:06→16:17)
[2023-06-27 09:07] VITALS: BP 148/106; TEMP 97.2; O2SAT 77; O2SAT 97
[2023-06-27] MEDS: HEPARIN SODIUM,PORCINE 5,000 UNITS/ML VIAL SQ SCH ×2 (09:08→20:41)
[2023-06-27] MEDS: ONDANSETRON ODT 4 MG TAB.RAPDIS SL PRN ×2 (12:14→20:37)
[2023-06-27 16:13] VITALS: BP 106/73; TEMP 97.6; O2SAT 98
[2023-06-27] MEDS: VANCOMYCIN FOR PO/GT/NG USE PO SCH (18:08)
[2023-06-27 20:20] VITALS: BP 116/75; TEMP 98.4; O2SAT 95
[2023-06-27] MEDS: ACIDOPHILUS/BULGARICUS CHEW TAB PO SCH (20:37)
[2023-06-27] MEDS: GABAPENTIN 400 MG CAPSULE PO SCH (20:37)
[2023-06-27] MEDS: TRAMADOL HCL 50 MG TABLET PO PRN (20:44)
[2023-06-28 04:55] VITALS: BP 130/78; TEMP 98.4; O2SAT 95
[2023-06-28] MEDS: PANTOPRAZOLE SODIUM 40 MG TABLET.DR PO SCH (06:28)
[2023-06-28] MEDS: LEVOTHYROXINE SODIUM 125 MCG TABLET PO SCH (06:28)
[2023-06-28 07:13] LABS: BASOPHILS % (AUTO) 0.5 % (0.0-2.0); EOSINOPHILS # (AUTO) 0.2 K/uL (0.0-0.7); EOSINOPHILS % (AUTO) 2.3 % (0.0-7.0); HEMATOCRIT 32.9 % (31.2-41.9); HEMOGLOBIN 10.7 g/dL (10.9-14.3); LYMPHOCYTES # (AUTO) 2.5 K/uL (0.8-4.8); LYMPHOCYTES % (AUTO) 35.2 % (20.5-51.5); MEAN CORPUSCULAR HEMOGLOBIN 26.5 uug (24.7-32.8); MEAN CORPUSCULAR HGB CONC 33 g/dL (32.3-35.6); MEAN CORPUSCULAR VOLUME 81.4 fL (75.5-95.3); MONOCYTES # (AUTO) 0.8 K/uL (0.1-1.30); MONOCYTES % (AUTO) 11.5 % (0.0-11.0); NEUTROPHILS # (AUTO) 3.5 K/uL (1.8-8.9); NEUTROPHILS % (AUTO) 50.5 % (38.5-71.5); PLATELET COUNT (AUTO) 218 K/uL (179-408); RED BLOOD CELL COUNT(AUTO) 4.04 MIL/uL (3.63-4.92); RED CELL DISTRIBUTION WIDTH 17.5 % (12.3-17.7)
[2023-06-28 07:22] LABS: DIFFERENTIAL COMMENT 1
[2023-06-28 07:29] LABS: ALBUMIN 2.7 g/dL (3.4-5.0); BILIRUBIN,TOTAL 0.2 mg/dL (0.2-1.0); CALCIUM 8.9 mg/dL (8.5-10.1); CREATININE 0.9 mg/dL (0.6-1.3); MAGNESIUM 1.7 mg/dL (1.8-2.4); POTASSIUM 4.5 mmol/L (3.5-5.1); TOTAL PROTEIN, SERUM 6.5 g/dL (6.4-8.2)
[2023-06-28 07:52] VITALS: BP 130/62; TEMP 97.8; O2SAT 94
[2023-06-28] MEDS: ACIDOPHILUS/BULGARICUS CHEW TAB PO SCH ×2 (08:45→20:55)
[2023-06-28] MEDS: MULTIVITAMINS,THERAPEUTIC TABLET PO SCH (08:46)
[2023-06-28] MEDS: GABAPENTIN 300 MG CAPSULE PO SCH (08:46)
[2023-06-28] MEDS: GLUCERNA SHAKE 237 ML CAN PO SCH (08:46)
[2023-06-28] MEDS: DOCUSATE SODIUM 100 MG CAPSULE PO SCH ×2 (08:46→17:23)
[2023-06-28] MEDS: buPROPion XL 150 MG TAB.SR.24H PO SCH (08:47)
[2023-06-28] MEDS: LISINOPRIL 10 MG TABLET PO SCH (08:47)
[2023-06-28] MEDS: HEPARIN SODIUM,PORCINE 5,000 UNITS/ML VIAL SQ SCH ×2 (08:48→20:56)
[2023-06-28] MEDS: ONDANSETRON ODT 4 MG TAB.RAPDIS SL PRN (09:09)
[2023-06-28] MEDS: VANCOMYCIN FOR PO/GT/NG USE PO SCH (09:09)
[2023-06-28] MEDS ORDERED: MAGNESIUM OXIDE 400 MG TABLET PO ONE (11:00)
[2023-06-28 15:17] VITALS: BP 102/63; TEMP 98.4; O2SAT 92
[2023-06-28] MEDS: TRAMADOL HCL 50 MG TABLET PO PRN (17:58)
[2023-06-28 20:00] VITALS: BP 111/65; TEMP 98.5; O2SAT 95
[2023-06-28] MEDS: GABAPENTIN 400 MG CAPSULE PO SCH (20:55)
[2023-06-28] MEDS: ACETAMINOPHEN 325 MG TABLET PO PRN (21:25)
[2023-06-28] MEDS: ZOLPIDEM 5 MG TABLET PO PRN (22:10)
[2023-06-29] MEDS: TRAMADOL HCL 50 MG TABLET PO PRN ×3 (00:05→20:58)
[2023-06-29 04:00] VITALS: BP 126/77; TEMP 97.2; O2SAT 96
[2023-06-29] MEDS: PANTOPRAZOLE SODIUM 40 MG TABLET.DR PO SCH (06:15)
[2023-06-29] MEDS: LEVOTHYROXINE SODIUM 125 MCG TABLET PO SCH (06:15)
[2023-06-29 07:38] VITALS: BP 126/75; TEMP 98.4; O2SAT 97
[2023-06-29] MEDS: ACIDOPHILUS/BULGARICUS CHEW TAB PO SCH ×2 (08:33→20:43)
[2023-06-29] MEDS: DOCUSATE SODIUM 100 MG CAPSULE PO SCH ×2 (08:33→16:37)
[2023-06-29] MEDS: buPROPion XL 150 MG TAB.SR.24H PO SCH (08:34)
[2023-06-29] MEDS: GABAPENTIN 300 MG CAPSULE PO SCH (08:34)
[2023-06-29] MEDS: MULTIVITAMINS,THERAPEUTIC TABLET PO SCH (08:34)
[2023-06-29] MEDS: LISINOPRIL 10 MG TABLET PO SCH (08:37)
[2023-06-29] MEDS: HEPARIN SODIUM,PORCINE 5,000 UNITS/ML VIAL SQ SCH ×2 (08:38→20:44)
[2023-06-29] MEDS: GLUCERNA SHAKE 237 ML CAN PO SCH (08:39)
[2023-06-29] MEDS: VANCOMYCIN FOR PO/GT/NG USE PO SCH (09:01)
[2023-06-29] MEDS: ONDANSETRON ODT 4 MG TAB.RAPDIS SL PRN ×2 (10:43→17:47)
[2023-06-29] MEDS: GUAIFENESIN/DEXTROMETHORPHAN 5 ML UDC PO PRN (14:05)
[2023-06-29 15:39] VITALS: BP 120/80; TEMP 98.3; O2SAT 94
[2023-06-29 20:00] VITALS: BP 140/81; TEMP 97.9; O2SAT 96
[2023-06-29] MEDS: GABAPENTIN 400 MG CAPSULE PO SCH (20:43)
[2023-06-30 04:00] VITALS: BP 137/82; TEMP 97.9; O2SAT 95
[2023-06-30] MEDS: PANTOPRAZOLE SODIUM 40 MG TABLET.DR PO SCH (07:07)
[2023-06-30] MEDS: LEVOTHYROXINE SODIUM 125 MCG TABLET PO SCH (07:07)
[2023-06-30 08:00] VITALS: BP 152/86; TEMP 98.5; O2SAT 94
[2023-06-30] MEDS: GABAPENTIN 300 MG CAPSULE PO SCH (08:41)
[2023-06-30] MEDS: ACIDOPHILUS/BULGARICUS CHEW TAB PO SCH ×2 (08:41→20:13)
[2023-06-30] MEDS: LISINOPRIL 10 MG TABLET PO SCH (08:41)
[2023-06-30] MEDS: buPROPion XL 150 MG TAB.SR.24H PO SCH (08:41)
[2023-06-30] MEDS: DOCUSATE SODIUM 100 MG CAPSULE PO SCH ×3 (08:41→17:00)
[2023-06-30] MEDS: HEPARIN SODIUM,PORCINE 5,000 UNITS/ML VIAL SQ SCH ×2 (08:42→20:17)
[2023-06-30] MEDS: MULTIVITAMINS,THERAPEUTIC TABLET PO SCH (08:42)
[2023-06-30] MEDS: ONDANSETRON ODT 4 MG TAB.RAPDIS SL PRN (08:42)
[2023-06-30] MEDS: GLUCERNA SHAKE 237 ML CAN PO SCH (08:43)
[2023-06-30] MEDS: VANCOMYCIN FOR PO/GT/NG USE PO SCH (09:19)
[2023-06-30 15:35] VITALS: BP 113/75; TEMP 98.5; O2SAT 96
[2023-06-30] MEDS: ACETAMINOPHEN 325 MG TABLET PO PRN (17:45)
[2023-06-30 20:00] VITALS: BP_SYST 107; BP_SYST 135; BP_DIAS 45; BP_DIAS 63; TEMP 97.9; TEMP 98.6; O2SAT 98
[2023-06-30] MEDS: GABAPENTIN 400 MG CAPSULE PO SCH (20:14)
[2023-06-30] MEDS: TRAMADOL HCL 50 MG TABLET PO PRN (20:48)
[2023-07-01 05:43] VITALS: BP 138/79; TEMP 97.2; O2SAT 99
[2023-07-01] MEDS: PANTOPRAZOLE SODIUM 40 MG TABLET.DR PO SCH (06:11)
[2023-07-01] MEDS: LEVOTHYROXINE SODIUM 125 MCG TABLET PO SCH (06:11)
[2023-07-01 07:45] VITALS: BP 120/76; TEMP 97.8; O2SAT 95
[2023-07-01] MEDS: LISINOPRIL 10 MG TABLET PO SCH (08:36)
[2023-07-01] MEDS: DOCUSATE SODIUM 100 MG CAPSULE PO SCH ×2 (08:36→16:58)
[2023-07-01] MEDS: GABAPENTIN 300 MG CAPSULE PO SCH (08:36)
[2023-07-01] MEDS: ACIDOPHILUS/BULGARICUS CHEW TAB PO SCH ×2 (08:36→20:36)
[2023-07-01] MEDS: buPROPion XL 150 MG TAB.SR.24H PO SCH (08:37)
[2023-07-01] MEDS: MULTIVITAMINS,THERAPEUTIC TABLET PO SCH (08:37)
[2023-07-01] MEDS: GLUCERNA SHAKE 237 ML CAN PO SCH (08:38)
[2023-07-01] MEDS: HEPARIN SODIUM,PORCINE 5,000 UNITS/ML VIAL SQ SCH ×2 (08:39→20:38)
[2023-07-01] MEDS: VANCOMYCIN FOR PO/GT/NG USE PO SCH (08:42)
[2023-07-01] MEDS: TRAMADOL HCL 50 MG TABLET PO PRN ×2 (11:25→20:37)
[2023-07-01] MEDS: ACETAMINOPHEN 325 MG TABLET PO PRN (15:17)
[2023-07-01 16:08] VITALS: BP 128/80; TEMP 97.6; O2SAT 98
[2023-07-01 19:23] LABS: *CLARITY,URINE CLOUDY (CLEAR); *COLOR,URINE STRAW (YELLOW); *PROTEIN,URINE TRACE (NEGATIVE); PH,URINE 7.5 (5.0-8.0); UGLUCOSE NEGATIVE (NEGATIVE)
[2023-07-01 19:24] LABS: *BILIRUBIN,URIN NEGATIVE (NEGATIVE); *BLOOD, URINE 2+ (NEGATIVE); *KETONES,URINE NEGATIVE (NEGATIVE); *UROBILINOGEN,URINE 0.2 E.U./dl (NORMAL); NITRITE, URINE TRACE (NEGATIVE)
[2023-07-01 19:25] LABS: LEUKOCYTE ESTERASE ,URINE 3+ (NEGATIVE)
[2023-07-01 19:34] LABS: BACTERIA,URINE MANY /HPF (NONE SEEN); RBC,URINE 20-50 /HPF (0-3); SQUAMOUS EPITHELIAL CELL,UR FEW /HPF (NONE SEEN); WBC,URINE TNTC /HPF (0-3)
[2023-07-01] MEDS: GABAPENTIN 400 MG CAPSULE PO SCH (20:37)
[2023-07-02 04:54] VITALS: BP 141/68; TEMP 97.7; O2SAT 94
[2023-07-02] MEDS: PANTOPRAZOLE SODIUM 40 MG TABLET.DR PO SCH (06:04)
[2023-07-02] MEDS: LEVOTHYROXINE SODIUM 125 MCG TABLET PO SCH (06:04)
[2023-07-02 07:14] LABS: BASOPHILS # (AUTO) 0.1 K/UL (0.0-0.2); BASOPHILS % (AUTO) 0.7 % (0.0-2.0); EOSINOPHILS # (AUTO) 0.1 K/uL (0.0-0.7); EOSINOPHILS % (AUTO) 1.6 % (0.0-7.0); HEMATOCRIT 32.1 % (31.2-41.9); HEMOGLOBIN 10.4 g/dL (10.9-14.3); LYMPHOCYTES # (AUTO) 2.6 K/uL (0.8-4.8); LYMPHOCYTES % (AUTO) 28.4 % (20.5-51.5); MEAN CORPUSCULAR HEMOGLOBIN 26.6 uug (24.7-32.8); MEAN CORPUSCULAR HGB CONC 32 g/dL (32.3-35.6); MEAN CORPUSCULAR VOLUME 82.3 fL (75.5-95.3); MONOCYTES # (AUTO) 0.9 K/uL (0.1-1.30); MONOCYTES % (AUTO) 10.5 % (0.0-11.0); NEUTROPHILS # (AUTO) 5.3 K/uL (1.8-8.9); NEUTROPHILS % (AUTO) 58.8 % (38.5-71.5); PLATELET COUNT (AUTO) 298 K/uL (179-408)
[2023-07-02 07:20] LABS: DIFFERENTIAL COMMENT 1
[2023-07-02 07:22] LABS: ALANINE AMINOTRANSFERASE 62 U/L (14-59); ALBUMIN 2.9 g/dL (3.4-5.0); ALKALINE PHOSPHATASE 144 U/L (50-136); ASPARTATE AMINOTRANSFERASE 24 U/L (15-37); BILIRUBIN,TOTAL 0.2 mg/dL (0.2-1.0); CARBON DIOXIDE 27 mmol/L (21-32); CHLORIDE 104 mmol/L (98-107); CHOLESTEROL 172 mg/dL (<200); GLUCOSE 84 mg/dL (74-106); HDL CHOLESTEROL 41 mg/dL (40-60); MAGNESIUM 1.9 mg/dL (1.8-2.4); PHOSPHOROUS 4.2 mg/dL (2.5-4.9); POTASSIUM 5.2 mmol/L (3.5-5.1); SODIUM SERUM 139 mmol/L (136-145); TOTAL PROTEIN, SERUM 6.5 g/dL (6.4-8.2); TRIGLYCERIDES 240 MG/DL (30-150); UREA NITROGEN, BLOOD 17 mg/dL (7-18)
[2023-07-02 07:32] VITALS: BP 146/81; TEMP 97.4; O2SAT 95
[2023-07-02] MEDS: ONDANSETRON ODT 4 MG TAB.RAPDIS SL PRN ×3 (09:32→23:55)
[2023-07-02] MEDS: buPROPion XL 150 MG TAB.SR.24H PO SCH (09:33)
[2023-07-02] MEDS: DOCUSATE SODIUM 100 MG CAPSULE PO SCH ×2 (09:33→16:49)
[2023-07-02] MEDS: ACIDOPHILUS/BULGARICUS CHEW TAB PO SCH ×2 (09:33→20:16)
[2023-07-02] MEDS: MULTIVITAMINS,THERAPEUTIC TABLET PO SCH (09:33)
[2023-07-02] MEDS: GABAPENTIN 300 MG CAPSULE PO SCH (09:33)
[2023-07-02] MEDS: LISINOPRIL 10 MG TABLET PO SCH (09:33)
[2023-07-02] MEDS: HEPARIN SODIUM,PORCINE 5,000 UNITS/ML VIAL SQ SCH ×2 (09:34→20:18)
[2023-07-02] MEDS: VANCOMYCIN FOR PO/GT/NG USE PO SCH (09:35)
[2023-07-02] MEDS: GLUCERNA SHAKE 237 ML CAN PO SCH (09:35)
[2023-07-02 15:40] VITALS: BP 115/77; TEMP 98; O2SAT 97
[2023-07-02] MEDS: GUAIFENESIN/DEXTROMETHORPHAN 5 ML UDC PO PRN (15:56)
[2023-07-02] MEDS: TRAMADOL HCL 50 MG TABLET PO PRN (19:49)
[2023-07-02 20:00] VITALS: BP 126/76; TEMP 97.8; O2SAT 95
[2023-07-02] MEDS: GABAPENTIN 400 MG CAPSULE PO SCH (20:16)
[2023-07-02] MEDS ORDERED: CEFTRIAXONE 1 G in IV DEXTROSE 5% 50 ML IV SCH (21:00)
[2023-07-02] MEDS ORDERED: CEFTRIAXONE /D5W 50ML IVPB **ER PYXIS IV ONE (21:25)
[2023-07-03 04:00] VITALS: BP 139/84; TEMP 97.8; O2SAT 94
[2023-07-03] MEDS: LEVOTHYROXINE SODIUM 125 MCG TABLET PO SCH (06:06)
[2023-07-03] MEDS: PANTOPRAZOLE SODIUM 40 MG TABLET.DR PO SCH (06:06)
[2023-07-03 07:42] VITALS: BP 144/78; TEMP 97.6; O2SAT 96
[2023-07-03] MEDS: GABAPENTIN 300 MG CAPSULE PO SCH (09:22)
[2023-07-03] MEDS: ACIDOPHILUS/BULGARICUS CHEW TAB PO SCH ×2 (09:22→20:31)
[2023-07-03] MEDS: buPROPion XL 150 MG TAB.SR.24H PO SCH (09:22)
[2023-07-03] MEDS: DOCUSATE SODIUM 100 MG CAPSULE PO SCH ×2 (09:23→17:00)
[2023-07-03] MEDS: LISINOPRIL 10 MG TABLET PO SCH (09:23)
[2023-07-03] MEDS: MULTIVITAMINS,THERAPEUTIC TABLET PO SCH (09:23)
[2023-07-03] MEDS: HEPARIN SODIUM,PORCINE 5,000 UNITS/ML VIAL SQ SCH ×2 (09:25→20:34)
[2023-07-03] MEDS: ONDANSETRON ODT 4 MG TAB.RAPDIS SL PRN ×2 (10:45→21:39)
[2023-07-03] MEDS: GUAIFENESIN/DEXTROMETHORPHAN 5 ML UDC PO PRN (12:47)
[2023-07-03 14:12] VITALS: BP 109/68; TEMP 97.8; O2SAT 100
[2023-07-03 15:54] VITALS: BP 98/62; TEMP 98.2; O2SAT 95
[2023-07-03] MEDS ORDERED: FOSFOMYCIN TROMETHAMINE 3 GM PACKET PO SCH (18:00)
[2023-07-03 20:00] VITALS: BP 111/78; TEMP 97.7; O2SAT 98
[2023-07-03] MEDS: GABAPENTIN 400 MG CAPSULE PO SCH (20:32)
[2023-07-04 04:00] VITALS: BP 109/72; TEMP 97.8; O2SAT 98
[2023-07-04] MEDS: PANTOPRAZOLE SODIUM 40 MG TABLET.DR PO SCH (06:12)
[2023-07-04] MEDS: LEVOTHYROXINE SODIUM 125 MCG TABLET PO SCH (06:12)
[2023-07-04 07:42] VITALS: BP 122/73; TEMP 97.8; O2SAT 98
[2023-07-04 08:13] LABS: ALANINE AMINOTRANSFERASE 60 U/L (14-59); ALBUMIN 2.8 g/dL (3.4-5.0); ALKALINE PHOSPHATASE 143 U/L (50-136); ASPARTATE AMINOTRANSFERASE 32 U/L (15-37); BILIRUBIN,TOTAL 0.1 mg/dL (0.2-1.0); CALCIUM 8.6 mg/dL (8.5-10.1); CARBON DIOXIDE 25 mmol/L (21-32); CHLORIDE 105 mmol/L (98-107); CREATININE 1.2 mg/dL (0.6-1.3); GLUCOSE 105 mg/dL (74-106); POTASSIUM 4.9 mmol/L (3.5-5.1); SODIUM SERUM 139 mmol/L (136-145); TOTAL PROTEIN, SERUM 6.5 g/dL (6.4-8.2); UREA NITROGEN, BLOOD 16 mg/dL (7-18)
[2023-07-04] MEDS: DOCUSATE SODIUM 100 MG CAPSULE PO SCH ×2 (09:00→17:00)
[2023-07-04] MEDS: buPROPion XL 150 MG TAB.SR.24H PO SCH (09:13)
[2023-07-04] MEDS: LISINOPRIL 10 MG TABLET PO SCH (09:14)
[2023-07-04] MEDS: GABAPENTIN 300 MG CAPSULE PO SCH (09:14)
[2023-07-04] MEDS: MULTIVITAMINS,THERAPEUTIC TABLET PO SCH (09:14)
[2023-07-04] MEDS: ACIDOPHILUS/BULGARICUS CHEW TAB PO SCH ×2 (09:14→20:57)
[2023-07-04] MEDS: HEPARIN SODIUM,PORCINE 5,000 UNITS/ML VIAL SQ SCH ×2 (09:16→20:59)
[2023-07-04] MEDS: ACETAMINOPHEN 325 MG TABLET PO PRN (14:04)
[2023-07-04 15:43] VITALS: BP 119/56; TEMP 98.6; O2SAT 93
[2023-07-04 20:00] VITALS: BP 110/71; TEMP 97.9; O2SAT 98
[2023-07-04] MEDS: GABAPENTIN 400 MG CAPSULE PO SCH (20:57)
[2023-07-04] MEDS: TRAMADOL HCL 50 MG TABLET PO PRN (20:57)
[2023-07-04] MEDS: ONDANSETRON ODT 4 MG TAB.RAPDIS SL PRN (22:12)
[2023-07-05] MEDS: ZOLPIDEM 5 MG TABLET PO PRN (02:10)
[2023-07-05 04:00] VITALS: BP 101/55; TEMP 97.9; O2SAT 93
[2023-07-05] MEDS: PANTOPRAZOLE SODIUM 40 MG TABLET.DR PO SCH (06:47)
[2023-07-05] MEDS: LEVOTHYROXINE SODIUM 125 MCG TABLET PO SCH (06:47)
[2023-07-05 08:00] VITALS: BP 120/72; TEMP 98; O2SAT 96
[2023-07-05] MEDS: DOCUSATE SODIUM 100 MG CAPSULE PO SCH (09:00)
[2023-07-05] MEDS: buPROPion XL 150 MG TAB.SR.24H PO SCH (09:07)
[2023-07-05] MEDS: HEPARIN SODIUM,PORCINE 5,000 UNITS/ML VIAL SQ SCH (09:08)
[2023-07-05] MEDS: GABAPENTIN 300 MG CAPSULE PO SCH (09:09)
[2023-07-05] MEDS: LISINOPRIL 10 MG TABLET PO SCH (09:09)
[2023-07-05] MEDS: ACIDOPHILUS/BULGARICUS CHEW TAB PO SCH (09:09)
[2023-07-05] MEDS: MULTIVITAMINS,THERAPEUTIC TABLET PO SCH (09:09)
[2023-07-05] MEDS: ACETAMINOPHEN 325 MG TABLET PO PRN (09:47)
[2023-07-05 15:32] VITALS: BP 121/79; TEMP 97.7; O2SAT 95
== END 2023-07-05 16:30 | disposition home health service (06) | DRG 949 ==
PROVIDERS: ADMIT Physical Medicine & Rehabilitation Pain Medicine; ATTEND Physical Medicine & Rehabilitation Pain Medicine
DX: T83.518D Infection and inflammatory reaction due to other urinary catheter, subsequent encounter (principal); G92.8 Other toxic encephalopathy; J69.0 Pneumonitis due to inhalation of food and vomit; N39.0 Urinary tract infection, site not specified; B96.1 Klebsiella pneumoniae [K. pneumoniae] as the cause of diseases classified elsewhere; D64.9 Anemia, unspecified; E03.9 Hypothyroidism, unspecified; E11.9 Type 2 diabetes mellitus without complications; E78.5 Hyperlipidemia, unspecified; G62.9 Polyneuropathy, unspecified; I10 Essential (primary) hypertension; M19.90 Unspecified osteoarthritis, unspecified site; G89.29 Other chronic pain; F41.0 Panic disorder [episodic paroxysmal anxiety]; J47.9 Bronchiectasis, uncomplicated; K21.00 Gastro-esophageal reflux disease with esophagitis, without bleeding; K29.00 Acute gastritis without bleeding; K59.00 Constipation, unspecified; K74.60 Unspecified cirrhosis of liver; N28.1 Cyst of kidney, acquired; Z87.440 Personal history of urinary (tract) infections; Z96.641 Presence of right artificial hip joint; E66.3 Overweight; Z68.27 Body mass index [BMI] 27.0-27.9, adult; D35.02 Benign neoplasm of left adrenal gland
CPT/HCPCS: 36415; 83550; 83735; 84100; 85025; 85610; 97535-GO-CO; J0696; J1644; J3370; Q0162

== ENCOUNTER 2024-04-28 17:28 | Emergency (ER) | payer MEDICARE, BC ==
[~2024-04-28] VITALS: Ht 160 cm; Wt 63.5 kg
[~2024-04-28 17:28] MED LIST changes: -ATOR20TA PO; +CIPR-262 PO; +HYDR-3976 PO; -LEVO112T2 PO; -OMEP40CA21 PO; +OMEPRAZOLE; +PHEN95TA26 PO; -SERT100T PO; +SERT50TA14; +SYNTHROID; -VANC500V PO
[2024-04-28 18:29] LABS: BASOPHILS % (AUTO) 0.4 % (0.0-2.0); EOSINOPHILS # (AUTO) 0.2 K/uL (0.0-0.7); EOSINOPHILS % (AUTO) 2.7 % (0.0-7.0); HEMATOCRIT 33.1 % (31.2-41.9); HEMOGLOBIN 10.1 g/dL (10.9-14.3); LYMPHOCYTES # (AUTO) 2.2 K/uL (0.8-4.8); LYMPHOCYTES % (AUTO) 30.5 % (20.5-51.5); MEAN CORPUSCULAR HEMOGLOBIN 26.9 uug (24.7-32.8); MEAN CORPUSCULAR HGB CONC 31 g/dL (32.3-35.6); MEAN CORPUSCULAR VOLUME 87.7 fL (75.5-95.3); MONOCYTES % (AUTO) 13.5 % (0.0-11.0); NEUTROPHILS # (AUTO) 3.8 K/uL (1.8-8.9); NEUTROPHILS % (AUTO) 52.9 % (38.5-71.5); PLATELET COUNT (AUTO) 164 K/uL (179-408); RED BLOOD CELL COUNT(AUTO) 3.77 MIL/uL (3.63-4.92); RED CELL DISTRIBUTION WIDTH 15.5 % (12.3-17.7); WHITE BLOOD COUNT (AUTO) 7.2 K/uL (3.8-11.8)
[2024-04-28 18:31] LABS: DIFFERENTIAL COMMENT 1
[2024-04-28 18:41] LABS: ALANINE AMINOTRANSFERASE 354 U/L (14-59); ALBUMIN 2.8 g/dL (3.4-5.0); ALKALINE PHOSPHATASE 159 U/L (50-136); ASPARTATE AMINOTRANSFERASE 149 U/L (15-37); BILIRUBIN,TOTAL 0.3 mg/dL (0.2-1.0); CALCIUM 8.2 mg/dL (8.5-10.1); CARBON DIOXIDE 25 mmol/L (21-32); CHLORIDE 106 mmol/L (98-107); CREATININE 1.3 mg/dL (0.6-1.3); GLUCOSE 145 mg/dL (74-106); SODIUM SERUM 140 mmol/L (136-145); TOTAL PROTEIN, SERUM 6.1 g/dL (6.4-8.2); UREA NITROGEN, BLOOD 22 mg/dL (7-18)
[2024-04-28] MEDS: IV NORMAL SALINE 1000 ML BAG IV ONE (21:03)
[2024-04-28] MEDS: CEFTRIAXONE 1 G in IV DEXTROSE 5% 50 ML IV ONE (21:20)
[2024-04-28 21:31] LABS: *BILIRUBIN,URIN NEGATIVE (NEGATIVE); *BLOOD, URINE NEGATIVE (NEGATIVE); *CLARITY,URINE CLEAR (CLEAR); *COLOR,URINE YELLOW (YELLOW); *KETONES,URINE NEGATIVE (NEGATIVE); *PROTEIN,URINE NEGATIVE (NEGATIVE); *UROBILINOGEN,URINE 0.2 E.U./dl (NORMAL); LEUKOCYTE ESTERASE ,URINE 1+ (NEGATIVE); NITRITE, URINE NEGATIVE (NEGATIVE); UGLUCOSE NEGATIVE (NEGATIVE)
[2024-04-28 21:32] LABS: RBC,URINE 0-3 /HPF (0-3)
[2024-04-28] MEDS ORDERED: CEFTRIAXONE /D5W 50ML IVPB **ER PYXIS IV ONE (21:32)
[2024-04-28] MEDS ORDERED: CEFI400C4 PO (22:25)
[2024-04-28 23:16] VITALS: BP 118/73; TEMP 98.9; O2SAT 97
== END 2024-04-28 23:00 | disposition home or self-care (01) ==
LOC: ER 17:31
DX: N30.90 Cystitis, unspecified without hematuria (principal); E86.0 Dehydration; E11.9 Type 2 diabetes mellitus without complications; Z79.891 Long term (current) use of opiate analgesic; Z79.1 Long term (current) use of non-steroidal anti-inflammatories (NSAID); Z79.899 Other long term (current) drug therapy
CPT/HCPCS: 99285; 96365; 76705; 71045; 80053; 81001; 83690; 85025; 87040 ×2; 84484; 36415; 93005 ×2; 83605; 87086; J0696; J7040; A4606; A4663

== ENCOUNTER 2025-03-27 16:11 | Inpatient (IN) | payer MEDICARE, BC ==
[~2025-03-27] VITALS: Ht 162.6 cm; Wt 71.3 kg
[~2025-03-27 16:11] MED LIST changes: +CEFI400C4 PO
[2025-03-27] MEDS ORDERED: PIPERACILLIN/TAZOBACTAM/D5W 50 ML IV ONE (16:54)
[2025-03-27 17:06] LABS: PLATELET COUNT (AUTO) 140 K/uL (179-408); RED BLOOD CELL COUNT(AUTO) 4.21 MIL/uL (3.63-4.92); RED CELL DISTRIBUTION WIDTH 15.3 % (12.3-17.7); WHITE BLOOD COUNT (AUTO) 12.2 K/uL (3.8-11.8)
[2025-03-27 17:17] LABS: CREATININE 1.4 mg/dL (0.6-1.3); SODIUM SERUM 140 mmol/L (136-145); UREA NITROGEN, BLOOD 31 mg/dL (7-18)
[2025-03-27] MEDS: PIPERACILLIN SODIUM/TAZOBACTAM 3.375 G in IV DEXTROSE 5% 50 ML IV ONE (17:18)
[2025-03-27] MEDS: IV NORMAL SALINE 1000 ML BAG IV ONE (17:18)
[2025-03-27 17:23] LABS: ASPARTATE AMINOTRANSFERASE 15 U/L (15-37); TOTAL PROTEIN, SERUM 5.7 g/dL (6.4-8.2)
[2025-03-27 17:27] LABS: LACTIC ACID 2.6 mmol/L (0.4-2.0)
[2025-03-27] MEDS ORDERED: ONDANSETRON 4 MG/2 ML VIAL ONE ×2 (17:31→19:54)
[2025-03-27] MEDS: ONDANSETRON 4 MG/2 ML VIAL IV ONE ×2 (17:35→20:00)
[2025-03-27] MEDS ORDERED: MIRABEGRON PO (17:47)
[2025-03-27] MEDS ORDERED: LEVO125T8 PO (17:47)
[2025-03-27] MEDS ORDERED: ATOR20TA PO (17:47)
[2025-03-27] MEDS ORDERED: MELO7.5T12 PO (17:47)
[2025-03-27] MEDS ORDERED: TRAM100T23 PO (17:47)
[2025-03-27] MEDS ORDERED: ALBU1.25 IH (17:47)
[2025-03-27] MEDS ORDERED: LISI-782 PO (17:47)
[2025-03-27] MEDS ORDERED: IPRA0.2S48 NEB (17:47)
[2025-03-27] MEDS ORDERED: BENZ200C53 PO (17:47)
[2025-03-27] MEDS ORDERED: TRIM100T PO (17:47)
[2025-03-27] MEDS ORDERED: MEMA10TA PO (17:47)
[2025-03-27] MEDS ORDERED: ESTR42.53 VG (17:47)
[2025-03-27] MEDS ORDERED: SERT-440 PO (17:47)
[2025-03-27] MEDS ORDERED: GABA300C PO (17:47)
[2025-03-27] MEDS ORDERED: prevagen PO (17:47)
[2025-03-27 18:07] LABS: *BILIRUBIN,URIN NEGATIVE (NEGATIVE); *CLARITY,URINE CLEAR (CLEAR); *COLOR,URINE YELLOW (YELLOW); *KETONES,URINE NEGATIVE (NEGATIVE); *PROTEIN,URINE NEGATIVE (NEGATIVE); *UROBILINOGEN,URINE 0.2 E.U./dl (NORMAL); LEUKOCYTE ESTERASE ,URINE 2+ (NEGATIVE); NITRITE, URINE POSITIVE (NEGATIVE); UGLUCOSE NEGATIVE (NEGATIVE)
[2025-03-27 18:19] LABS: *BLOOD, URINE TRACE (NEGATIVE)
[2025-03-27 18:41] LABS: SQUAMOUS EPITHELIAL CELL,UR FEW /HPF (NONE SEEN)
[2025-03-27] MEDS ORDERED: HYDROMORPHONE 1 MG/1 ML DISP.SYRIN ONE (19:36)
[2025-03-27] MEDS: HYDROMORPHONE 1 MG/1 ML DISP.SYRIN IV ONE (19:50)
[2025-03-27 19:58] LABS: *OCCULT BLOOD STOOL POSITIVE (NEGATIVE)
[2025-03-27] MEDS ORDERED: ACETAMINOPHEN 325 MG TABLET PO PRN (20:00)
[2025-03-27] MEDS ORDERED: REMEDY ESSENTIAL ZINC PASTE 113 GM TP PRN (20:00)
[2025-03-27] MEDS ORDERED: MAGNESIUM HYDROXIDE 30 ML LIQUID UDC PO PRN (20:00)
[2025-03-27] MEDS ORDERED: ONDANSETRON 4 MG/2 ML VIAL IV PRN (20:00)
[2025-03-27 21:45] VITALS: BP 141/89; TEMP 97.7; O2SAT 94
[2025-03-27] MEDS ORDERED: PIPERACILLIN SODIUM/TAZOBACTAM 3.375 G in IV DEXTROSE 5% 50 ML IV SCH (22:00)
[2025-03-27] MEDS: ATORVASTATIN 20 MG TABLET PO SCH (23:11)
[2025-03-27] MEDS: IV NS 1000 ML 1,000 ML IV PRN (23:46)
[2025-03-27] MEDS ORDERED: PIPERACILLIN/TAZOBACTAM/D5W 100 ML IV ONE (23:57)
[2025-03-28] VITALS: BP 120/76; TEMP 97.9; O2SAT 96
[2025-03-28] MEDS: PIPERACILLIN SODIUM/TAZOBACTAM 3.375 G in IV DEXTROSE 5% 50 ML IV SCH (00:04)
[2025-03-28] MEDS: HYDROCODONE/APAP 10-325 MG TABLET PO PRN (02:00)
[2025-03-28 04:00] VITALS: BP 117/78; TEMP 97.7; O2SAT 96
[2025-03-28] MEDS: PANTOPRAZOLE SODIUM 40 MG TABLET.DR PO SCH (06:02)
[2025-03-28 07:15] LABS: PLATELET COUNT (AUTO) 121 K/uL (179-408); RED BLOOD CELL COUNT(AUTO) 3.65 MIL/uL (3.63-4.92); RED CELL DISTRIBUTION WIDTH 14.7 % (12.3-17.7); WHITE BLOOD COUNT (AUTO) 9.8 K/uL (3.8-11.8)
[2025-03-28 07:31] VITALS: BP 109/68; TEMP 97.6; O2SAT 95
[2025-03-28 07:38] LABS: ASPARTATE AMINOTRANSFERASE 18 U/L (15-37); CREATININE 1.1 mg/dL (0.6-1.3); SODIUM SERUM 140 mmol/L (136-145); TOTAL PROTEIN, SERUM 5.4 g/dL (6.4-8.2); UREA NITROGEN, BLOOD 28 mg/dL (7-18)
[2025-03-28] MEDS: DOCUSATE SODIUM 100 MG CAPSULE PO SCH (08:47)
[2025-03-28] MEDS: MEMANTINE HCL 10 MG TABLET PO SCH (08:47)
[2025-03-28] MEDS: SERTRALINE HCL 100 MG TABLET PO SCH (08:48)
[2025-03-28] MEDS: buPROPion XL 150 MG TAB.SR.24H PO SCH (08:48)
[2025-03-28] MEDS: LISINOPRIL 5 MG TABLET PO SCH (08:48)
[2025-03-28] MEDS: LEVOTHYROXINE SODIUM 125 MCG TABLET PO SCH (08:48)
[2025-03-28] MEDS ORDERED: MIRABEGRON 50 MG PO SCH (09:00)
[2025-03-28] MEDS ORDERED: TRIMETHOPRIM 100 MG PO SCH (09:00)
[2025-03-28 10:03] LABS: LYMPHOCYTES % (MANUAL) 33 % (20-40); MONOCYTES % (MANUAL) 14 % (2-10); NEUTROPHILS % (MANUAL) 53 % (42-75); PLATELET ESTIMATE MODERATELY DECREASED
[2025-03-28 11:08] VITALS: BP 131/65; TEMP 98.5; O2SAT 95
[2025-03-28] MEDS ORDERED: MIRA50TA PO (12:00)
[2025-03-28] MEDS: PIPERACILLIN SODIUM/TAZOBACTAM 3.375 G in IV DEXTROSE 5% 100 ML IV SCH (13:37)
[2025-03-28] MEDS: MAGNESIUM OXIDE 400 MG TABLET PO ONE (13:39)
[2025-03-28 15:14] VITALS: BP 135/83; TEMP 98.6; O2SAT 100
[2025-03-28] MEDS: GABAPENTIN 300 MG CAPSULE PO SCH (16:41)
[2025-03-28 19:30] VITALS: BP 145/79; TEMP 97.2; O2SAT 97
[2025-03-28] MEDS: REMEDY ESSENTIAL ZINC PASTE 113 GM TP SCH (20:48)
[2025-03-29 06:38] VITALS: BP 148/83; TEMP 97.7; O2SAT 96
[2025-03-29 07:23] LABS: PLATELET COUNT (AUTO) 120 K/uL (179-408); RED BLOOD CELL COUNT(AUTO) 3.82 MIL/uL (3.63-4.92); RED CELL DISTRIBUTION WIDTH 14.7 % (12.3-17.7); WHITE BLOOD COUNT (AUTO) 6.2 K/uL (3.8-11.8)
[2025-03-29 07:45] LABS: CREATININE 0.9 mg/dL (0.6-1.3); SODIUM SERUM 144 mmol/L (136-145); UREA NITROGEN, BLOOD 16 mg/dL (7-18)
[2025-03-29 09:47] LABS: NEUTROPHILS % (MANUAL) 50 % (42-75)
[2025-03-29 09:48] LABS: EOSINOPHILS % (MANUAL) 3 % (0-8); LYMPHOCYTES % (MANUAL) 29 % (20-40); MONOCYTES % (MANUAL) 18 % (2-10); PLATELET ESTIMATE DECREASED
[2025-03-29 11:06] VITALS: BP 145/78; TEMP 98.5; O2SAT 97
[2025-03-29 15:32] VITALS: BP 127/71; TEMP 98.5; O2SAT 97
[2025-03-29 16:20] VITALS: O2SAT 97
[2025-03-29 19:42] VITALS: BP 139/81; TEMP 98.3; O2SAT 97
[2025-03-30 05:30] VITALS: BP 157/87; TEMP 97.6; O2SAT 93
[2025-03-30 07:01] LABS: PLATELET COUNT (AUTO) 124 K/uL (179-408); RED BLOOD CELL COUNT(AUTO) 3.53 MIL/uL (3.63-4.92); RED CELL DISTRIBUTION WIDTH 14.2 % (12.3-17.7); WHITE BLOOD COUNT (AUTO) 5.8 K/uL (3.8-11.8)
[2025-03-30] MEDS: LEVOTHYROXINE SODIUM 125 MCG TABLET PO SCH (07:15)
[2025-03-30 07:28] LABS: CREATININE 0.8 mg/dL (0.6-1.3); SODIUM SERUM 143 mmol/L (136-145); UREA NITROGEN, BLOOD 10 mg/dL (7-18)
[2025-03-30 08:29] LABS: EOSINOPHILS % (MANUAL) 3 % (0-8); LYMPHOCYTES % (MANUAL) 42 % (20-40); MONOCYTES % (MANUAL) 10 % (2-10); NEUTROPHILS % (MANUAL) 45 % (42-75)
[2025-03-30 08:34] LABS: PLATELET ESTIMATE SLIGHT DECREASED
[2025-03-30 10:58] VITALS: BP 160/74; TEMP 98.2; O2SAT 96
[2025-03-30 11:15] VITALS: BP 148/68; TEMP 98; O2SAT 96
[2025-03-30] MEDS: MEROPENEM 500 MG in IV NORMAL SALINE 50 ML IV SCH (13:24)
[2025-03-30] MEDS: TOLTERODINE LA 2 MG CAP.SR.24H PO SCH (15:17)
[2025-03-30 15:27] VITALS: BP 151/91; TEMP 97.6; O2SAT 98
[2025-03-30 20:00] VITALS: TEMP 98.1
[2025-03-30] MEDS: TRAMADOL HCL 50 MG TABLET PO PRN (21:54)
[2025-03-30] MEDS: TRAZODONE 50 MG TABLET PO SCH (22:26)
[2025-03-31 00:58] VITALS: O2SAT 97
[2025-03-31 06:00] VITALS: TEMP 98
[2025-03-31 07:10] LABS: PLATELET COUNT (AUTO) 138 K/uL (179-408); RED BLOOD CELL COUNT(AUTO) 3.90 MIL/uL (3.63-4.92); RED CELL DISTRIBUTION WIDTH 14.6 % (12.3-17.7); WHITE BLOOD COUNT (AUTO) 6.2 K/uL (3.8-11.8)
[2025-03-31] MEDS ORDERED: ERTA1VIA4 IJ (10:47)
[2025-03-31] MEDS: PHENAZOPYRIDINE HCL 100 MG TABLET PO SCH (12:57)
[2025-03-31] MEDS ORDERED: PHEN-704 PO (14:14)
[2025-03-31 15:08] VITALS: BP 133/97; TEMP 98.4; O2SAT 97
[2025-03-31] MEDS ORDERED: PHENAZOPYRIDINE HCL 100 MG TABLET PO SCH (20:00)
== END 2025-03-31 18:00 | disposition home health service (06) | DRG 871 ==
LOC: ER 16:16 → TELE3 21:21 → MEDSURG3 03-28 18:32
PROVIDERS: ADMIT Nurse Practitioner Acute Care; ATTEND Nurse Practitioner Acute Care
PROC: 05HB33Z Insertion of Infusion Device into Right Basilic Vein, Percutaneous Approach (ICD-10-PCS; principal; 2025-03-28)
PROC: 05HB33Z Insertion of Infusion Device into Right Basilic Vein, Percutaneous Approach (ICD-10-PCS; 2025-03-28)
DX: A41.51 Sepsis due to Escherichia coli [E. coli] (principal); G92.8 Other toxic encephalopathy; N39.0 Urinary tract infection, site not specified; D68.59 Other primary thrombophilia; E44.0 Moderate protein-calorie malnutrition; F03.94 Unspecified dementia, unspecified severity, with anxiety; Z16.12 Extended spectrum beta lactamase (ESBL) resistance; N17.9 Acute kidney failure, unspecified; T76.A1XA Adult financial abuse, suspected, initial encounter; E03.9 Hypothyroidism, unspecified; Z79.890 Hormone replacement therapy; Z87.440 Personal history of urinary (tract) infections; Z96.611 Presence of right artificial shoulder joint; Z96.641 Presence of right artificial hip joint; Z74.09 Other reduced mobility; E88.09 Other disorders of plasma-protein metabolism, not elsewhere classified; E11.9 Type 2 diabetes mellitus without complications; Z87.19 Personal history of other diseases of the digestive system; N81.10 Cystocele, unspecified; G89.29 Other chronic pain; E78.5 Hyperlipidemia, unspecified; R65.20 Severe sepsis without septic shock; Z93.50 Unspecified cystostomy status; Z79.899 Other long term (current) drug therapy; N28.1 Cyst of kidney, acquired; I10 Essential (primary) hypertension; E27.8 Other specified disorders of adrenal gland
CPT/HCPCS: 36415; 70030-TC; 71045; 83605; 83735; 84100; 84484; 85025; 85730; 87040; 87077; 87086; 94760; A4606; A4663; A6209; G0378; J1171; J2185; J2405; J2543; J7040